=== PATIENT | female | born 1945 | race Caucasian/White ===

== ENCOUNTER 2017-11-15 12:50 | Inpatient (IN) | payer MEDICARE ==
--- NOTE | 2017-11-15 14:09 | RAD ---
INDICATION: Weakness COMPARISON: January 31, 2014 TECHNIQUE: An AP portable view obtained at 1401 hours is submitted. FINDINGS: Bones/Soft Tissues: There are no acute bony findings. Cardiomediastinal: The cardiomediastinal silhouette is normal. Lungs: There are no infiltrates. Pleura: There are no pleural effusions. Other: None IMPRESSION: NO ACTIVE DISEASE.
[2017-11-15 14:40] LABS: ABS Basophils 0.2 10^3/ul (0-0.2); ABS Eosinophils 0 10^3/ul (0-0.6); ABS Lymphocytes 1.4 10^3/ul (1.0-4.8); ABS Monocytes 0.9 10^3/ul (0-0.8); ABS Neutrophils 14.4 10^3/ul (1.5-7.7); ABS Nucleated RBC 0 10^3/ul; Eosinophil % 0.1 % (0-6); Hematocrit 39 % (35-47); Lymphocyte % 8.2 % (25-47); Mean Corpuscular HGB Conc 33 g/dl (31-36); Mean Corpuscular Hemoglobin 27 pg (27-31); Mean Corpuscular Volume 80 fL (80-97); Mean Platelet Volume 7.4 um3 (7.4-10.4); Nucleated Red Blood Cells % 0.1; Platelet Count 325 10^3/ul (150-450); Red Blood Count 4.92 10^6/ul (4.00-5.40); Red Cell Distribution Width 15 % (10.5-15); White Blood Count 16.8 10^3/ul (3.5-10.8)
[2017-11-15 14:43] LABS: Urine Appearance Clear; Urine Blood 3+ (Negative); Urine Color Yellow; Urine Ketones Negative (Negative); Urine Protein 2+(100 mg/dL) (Negative); Urine Red Blood Cell 1+(3-5/hpf) (Absent); Urine Specific Gravity 1.015 (1.010-1.030); Urine Urobilinogen Negative (Negative); Urine White Blood Cell Absent (Absent)
[2017-11-15 14:48] LABS: INR 1.06 (0.77-1.02)
[2017-11-15 15:01] LABS: EGFR Non-African American 69.7 (>60)
[2017-11-15] MEDS ORDERED: Piperacillin/Tazobac ADVAN(*) 3.375 GM in NS 0.9% 100 ML* 100 ML IVPB ONE (15:24)
[2017-11-15] MEDS ORDERED: NS 0.9% 1000 ML* 1,000 ML IV ONE (15:24)
[2017-11-15] MEDS ORDERED: NS 0.9% IV ONE (15:25)
[2017-11-15] MEDS ORDERED: Piperacillin/Tazobac (*) 3.375 GM BAG ONE (15:29)
--- NOTE | 2017-11-15 16:07 | ED ---
Adult Trauma - HPI Summary HPI Summary: This is antoni Pablobrendan documenting for attending Dr. Nazario Hoffmann MD. This patient is a 72 year old F BIBA with a chief complaint of weakness since this morning. Pt was on a futon on the floor and could not stand up from 01:00 to 6:30, when her neighbor found her and called for an ambulance. Pt was lifted by EMS to get here. The patient rates the pain 4/10 in severity. Patient reports abrasions on her elbows and knees, fatigue, increased urinary frequency , discolored/dark urine, constipation, and hematuria. Patient denies CP. Pt was able to walk to the bathroom while at [facility]. Pt mentioned that she had a fall around 11:00AM. Pt became visibly anxious at the thought of being admitted and began talking about her cats. Pt states she has no friends or family in the area. PMHX UTI, cardiac disease, psychiatric disorder. No PMHx Diabetes. - History of Current Complaint Chief Complaint: EDWeakness Stated Complaint: FALL Time Seen by Provider: 11/15/17 12:53 Hx Obtained From: Patient Mechanism of Injury: Fall Loss of Consciousness: no loss of consciousness Onset/Duration: Started Hours Ago - 1:00AM Onset of Pain: Immediate Onset Severity: Severe Current Severity: Moderate Pain Intensity: 4 Pain Scale Used: 0-10 Numeric Location: Other - abrasions on shoulders, knees, shins Aggravating Factor(s): Movement - Allergy/Home Medications Allergies/Adverse Reactions: Allergies Allergy/AdvReac Type Severity Reaction Status Date / Time fluoxetine [From Prozac] Allergy See Comment Verified 11/15/17 13:14 latex Allergy See Comment Verified 11/15/17 13:14 lithium Allergy See Comment Verified 11/15/17 13:14 olanzapine [From Zyprexa] Allergy See Comment Verified 11/15/17 13:14 L[place]ste Allergy Anaphylatic Uncoded 11/15/17 13:14 Shock Home Medications: Home Medications Losartan Potassium 1 tab PO QPM 11/15/17 [History Confirmed 11/15/17] lamoTRIgine TAB(*) [LaMICtal TAB(*)] 225 mg PO BEDTIME 11/15/17 [History Confirmed 11/15/17] risperiDONE TAB* [RisperDAL*] 0.5 mg PO BEDTIME 11/15/17 [History Confirmed ] PMH/Surg Hx/FS Hx/Imm Hx Cardiovascular History: Reports: Hx Hypertension EENT History: Denies: Hx Deafness - Surgical History Surgery Procedure, Year, and Place: D&C Infectious Disease History: No Infectious Disease History: Reports: Hx Shingles Denies: Traveled Outside the [place] in Last 30 Days - Family History Known Family History: Positive: Cardiac Disease - Social History Alcohol Use: Occasionally Substance Use Type: Reports: None Smoking Status (MU): Former Smoker Review of Systems Positive: Fatigue Negative: Chest Pain Positive: Other - constipation Positive: frequency, hematuria, other - dark urine Positive: Decreased ROM Positive: Bruising - knees, elbows, shins Positive: Weakness All Other Systems Reviewed And Are Negative: Yes Physical Exam - Summary Physical Exam Summary: Constitutional: Well-developed, Well-nourished, Alert. Poor personal hygiene. Skin: Warm, Dry. Abrasions on the elbows, knees, and shins. HENT: Normocephalic; Atraumatic Eyes: Conjunctiva normal Neck: Musculoskeletal ROM normal neck. Cardio: Rhythm regular, rate normal, Heart sounds normal; Intact distal pulses; The pedal pulses are 2+ and symmetric. Radial pulses are 2+ and symmetric. Pulmonary/Chest wall: Effort normal. Abd: Suprapubic tenderness. Musculoskeletal: normal Neuro: Alert, Oriented x3 Psych: Mood and affect Normal Triage Information Reviewed: Yes Vital Signs On Initial Exam: Initial Vitals Pulse Resp BP Pulse Ox 87 18 141/73 97 11/15/17 12:52 11/15/17 12:52 11/15/17 12:52 11/15/17 12:52 Vital Signs Reviewed: Yes Diagnostics - Vital Signs Vital Signs Temp Pulse Resp BP Pulse Ox 11/15/17 15:22 82 15 123/72 98 11/15/17 15:00 83 15 96 11/15/17 14:52 82 19 120/74 98 11/15/17 14:00 91 21 98 11/15/17 13:56 97 11/15/17 13:22 85 13 129/69 97 11/15/17 13:14 86 18 96 11/15/17 12:53 97.1 F 94 15 130/78 97 11/15/17 12:52 87 18 141/73 97 - Laboratory Lab Results: Lab Results 11/15/17 11/15/17 11/15/17 Range/Units 14:17 14:17 14:17 WBC 16.8 H (3.5-10.8) 10^3/ul RBC 4.92 (4.00-5.40) 10^6/ul Hgb 13.0 (12.0-16.0) g/dl Hct 39 (35-47) % MCV 80 (80-97) fL MCH 27 (27-31) pg MCHC 33 (31-36) g/dl RDW 15 (10.5-15) % Plt Count 325 (150-450) 10^3/ul MPV 7.4 (7.4-10.4) um3 Neut % (Auto) 85.6 H (38-83) % Lymph % (Auto) 8.2 L (25-47) % [place] % (Auto) 5.1 (0-7) % Eos % (Auto) 0.1 (0-6) % Baso % (Auto) 1.0 (0-2) % Absolute Neuts (auto) 14.4 H (1.5-7.7) 10^3/ul Absolute Lymphs (auto) 1.4 (1.0-4.8) 10^3/ul Absolute Monos (auto) 0.9 H (0-0.8) 10^3/ul Absolute Eos (auto) 0 (0-0.6) 10^3/ul Absolute Basos (auto) 0.2 (0-0.2) 10^3/ul Absolute Nucleated RBC 0 10^3/ul Nucleated RBC % 0.1 INR (Anticoag Therapy) 1.06 H (0.77-1.02) APTT 17.9 L (26.0-36.3) seconds Sodium 141 (135-145) mmol/L Potassium 3.2 L (3.5-5.0) mmol/L Chloride 106 (101-111) mmol/L Carbon Dioxide 23 (22-32) mmol/L Anion Gap 12 H (2-11) mmol/L BUN 10 (6-24) mg/dL Creatinine 0.81 (0.51-0.95) mg/dL Est GFR ( Amer) 84.3 (>60) Est GFR (Non-Af Amer) 69.7 (>60) BUN/Creatinine Ratio 12.3 (8-20) Glucose 131 H (70-100) mg/dL Lactic Acid (0.5-2.0) mmol/L Calcium 8.9 (8.6-10.3) mg/dL Total Bilirubin 0.60 (0.2-1.0) mg/dL AST 279 H (13-39) U/L ALT 70 H (7-52) U/L Alkaline Phosphatase 78 (34-104) U/L Total Creatine Kinase Pending Troponin I 0.09 H* (<0.04) ng/mL Total Protein 7.0 (6.4-8.9) g/dL Albumin 3.9 (3.2-5.2) g/dL Globulin 3.1 (2-4) g/dL Albumin/Globulin Ratio 1.3 (1-3) Urine Color Urine Appearance Urine pH (5-9) Ur Specific [place] (1.010-1.030) Urine Protein (Negative) Urine Ketones (Negative) Urine Blood (Negative) Urine Nitrate (Negative) Urine Bilirubin (Negative) Urine Urobilinogen (Negative) Ur Leukocyte Esterase (Negative) Urine WBC (Auto) (Absent) Urine RBC (Auto) (Absent) Ur Squamous Epith Cells (Absent) Urine Bacteria (Absent) Urine Glucose (Negative) 11/15/17 11/15/17 Range/Units 14:17 14:18 WBC (3.5-10.8) 10^3/ul RBC (4.00-5.40) 10^6/ul Hgb (12.0-16.0) g/dl Hct (35-47) % MCV (80-97) fL MCH (27-31) pg MCHC (31-36) g/dl RDW (10.5-15) % Plt Count (150-450) 10^3/ul MPV (7.4-10.4) um3 Neut % (Auto) (38-83) % Lymph % (Auto) (25-47) % [place] % (Auto) (0-7) % Eos % (Auto) (0-6) % Baso % (Auto) (0-2) % Absolute Neuts (auto) (1.5-7.7) 10^3/ul Absolute Lymphs (auto) (1.0-4.8) 10^3/ul Absolute Monos (auto) (0-0.8) 10^3/ul Absolute Eos (auto) (0-0.6) 10^3/ul Absolute Basos (auto) (0-0.2) 10^3/ul Absolute Nucleated RBC 10^3/ul Nucleated RBC % INR (Anticoag Therapy) (0.77-1.02) APTT (26.0-36.3) seconds Sodium (135-145) mmol/L Potassium (3.5-5.0) mmol/L Chloride (101-111) mmol/L Carbon Dioxide (22-32) mmol/L Anion Gap (2-11) mmol/L BUN (6-24) mg/dL Creatinine (0.51-0.95) mg/dL Est GFR ( Amer) (>60) Est GFR (Non-Af Amer) (>60) BUN/Creatinine Ratio (8-20) Glucose (70-100) mg/dL Lactic Acid 4.1 H* (0.5-2.0) mmol/L Calcium (8.6-10.3) mg/dL Total Bilirubin (0.2-1.0) mg/dL AST (13-39) U/L ALT (7-52) U/L Alkaline Phosphatase (34-104) U/L Total Creatine Kinase Troponin I (<0.04) ng/mL Total Protein (6.4-8.9) g/dL Albumin (3.2-5.2) g/dL Globulin (2-4) g/dL Albumin/Globulin Ratio (1-3) Urine Color Yellow Urine Appearance Clear Urine pH 5.0 (5-9) Ur Specific [place] 1.015 (1.010-1.030) Urine Protein 2+(100 mg/dl) A (Negative) Urine Ketones Negative (Negative) Urine Blood 3+ A (Negative) Urine Nitrate Negative (Negative) Urine Bilirubin Negative (Negative) Urine Urobilinogen Negative (Negative) Ur Leukocyte Esterase Negative (Negative) Urine WBC (Auto) Absent (Absent) Urine RBC (Auto) 1+(3-5/hpf) A (Absent) Ur Squamous Epith Cells Present A (Absent) Urine Bacteria Absent (Absent) Urine Glucose Negative (Negative) Result Diagrams: 11/15/17 14:17 07/29/18 14:17 Lab Statement: Any lab studies that have been ordered have been reviewed, and results considered in the medical decision making process. - Radiology CXR Radiology Interpretation Completed By: Radiologist - NO ACTIVE DISEASE. ER Physician reviewed this report - EKG 16:00 Cardiac Rate: NL - 87 bpm EKG Rhythm: Sinus Rhythm EKG Interpretation: T wave flattening V1-V6, no STEMI Adult Trauma Course/Dx - Course Course Of Treatment: This is guadalupeibmonserrat Ndiaye documenting for attending Dr. Nazario Hoffmann MD. This patient is a 72 year old F BIBA with a chief complaint of weakness since this morning. Pt was on a futon on the floor and could not stand up from 01:00 to 6:30, when her neighbor found her and called for an ambulance. Pt was lifted by EMS to get up. The patient rates the pain 4/10 in severity. Patient reports abrasions on her elbows and knees, fatigue, increased urinary frequency, discolored/dark urine, constipation, and hematuria. Patient denies CP. Pt was able to walk to the bathroom while at [facility]. Pt mentioned that she also had a fall around 11:00AM. Pt became visibly anxious at the thought of being admitted and began talking about her cats. Pt states she has no friends or family in the area. PMHX UTI, cardiac disease, psychiatric disorder. No PMHx Diabetes. An EKG reveals 87 bpm, T wave flattening V1-V6, no STEMI. CXR reveals, per radiologist, NO ACTIVE DISEASE. ED physician has reviewed this radiology report. Test results with no significant abnormalities except for Lactic Acid 4.1H and Trop I .09 H. In the ED course the patient was given IV fluids, Zosyn Bag, and aspirin. Pt will be admitted. Pt is agreeable with this plan. - Diagnoses Provider Diagnoses: Multiple abrasions, Sepsis, Rhabdomyolysis Discharge - Sign-Out/Discharge Documenting (check all that apply): Patient Departure - Admit - Discharge Plan Condition: Fair Disposition: ADMITTED TO [facility] Patient Education Materials: Rhabdomyolysis (ED), Ecchymosis (ED) Referrals: Barby Conde MD [Primary Care Provider] - Additional Instructions: RETURN TO THE EMERGENCY DEPARTMENT FOR CHANGING OR WORSENING SYMPTOMS
[2017-11-15] MEDS ORDERED: Iohexol 300* (CONTRAST) 10 ML SDV IV ONE (16:37)
[2017-11-15] MEDS ORDERED: Aspirin 81 mg CHEW TAB* 81 MG TAB.CHEW PO ONE ×2 (17:47→18:11)
[2017-11-15] MEDS ORDERED: NS 0.9% 1000 ML* 1,000 ML IV SCH ×2 (18:00→19:00)
--- NOTE | 2017-11-15 18:24 | RAD ---
INDICATION: Abdominal pain COMPARISON: None TECHNIQUE: Axial source images were obtained from the hemidiaphragms to the symphysis pubis following administration of oral contrast only. Coronal and sagittal reconstructed images were acquired. Lung bases: The lung bases are clear. Liver: The liver is enlarged with findings of hepatic steatosis. There are no masses identified on noncontrast evaluation. There is no ductal dilatation. Gallbladder: There is a small calcified gallstones. There is no evidence of wall thickening or pericholecystic fluid. Spleen: Noncontrast imaging shows no evidence of splenic mass. Pancreas: There is no focal pancreatic mass or ductal dilatation. Adrenal glands: There is no evidence of adrenal mass. Kidneys: There is bilateral nephrolithiasis with multiple calcifications 3 to 4 mm range the dominant lower pole left renal calculus measuring 0.8 cm. There is a 4 mm calculus proximal left ureter. This does not appear obstructive. There are no other calcifications of urinary significance. There is no renal mass on noncontrast evaluation. The bladder appears normal. Adenopathy: There is no evidence of adenopathy by size criteria. Fluid collections: There are no free or localized fluid collections. Vessels:There are no significant atherosclerotic changes involving the aorta. There is no focal aneurysm. The iliac vessels are normal in caliber. The IVC appears normal. GI tract: The upper GI tract is unremarkable. There is mural thickening and mild perienteric stranding the sigmoid colon multiple diverticula. CT findings are compatible with mild acute diverticulitis. The appendix is There are no findings of obstruction. Pelvic organs: The uterus and adnexa appear normal Bladder: There are no bladder masses. Abdominal and pelvic soft tissues: The extraperitoneal abdominal and pelvic soft tissues appear normal.. Osseous structures: There are no acute osseous findings. Other: None IMPRESSION: 1. Hepatomegaly with hepatic steatosis. 2. Cholelithiasis. 3. Bilateral nonobstructive nephrolithiasis and proximal left ureterolithiasis. 4. Mild sigmoid colon diverticulitis.
[2017-11-15] MEDS: Metoprolol Tartrate TAB* 25 MG PO SCH (20:44)
[2017-11-15] MEDS: lamoTRIgine TAB(*) 25 MG PO SCH (20:45)
[2017-11-15] MEDS: lamoTRIgine TAB(*) 100 MG PO SCH (20:45)
--- NOTE | 2017-11-15 21:24 | HP ---
HISTORY AND PHYSICAL: DATE OF ADMISSION: 11/15/17 ADMITTING PROVIDER: Narendra Parsons MD PRIMARY CARE PROVIDER: Dr. Conde. PRIMARY OUTPATIENT PRODUCTION TEAM MANAGER: Dr. Barrientos. PRIMARY PSYCHIATRIST: Kenia Bailey NP CHIEF COMPLAINT: Two falls, inability to stand from seated or fallen position. 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 [facility] was called, who assisted pt up. She then slipped off of a narrow cot later that same day around 11 a.m., neighbor found her and recommended that she seek evaluation. Initial evaluation in the emergency room showed a leukocytosis of 16.8, a lactic acidosis of 4.1, a troponin of 0.09, and a urinalysis with 3+ blood, 1+ RBCs and 2+ protein. She was started on sepsis protocol fluid resuscitation with initiation of 30 cc/kg fluid bolus (on 2nd L currently) and given Zosyn. CT abdomen and pelvis with contrast ordered/pending. She was referred to the hospitalist service for admission for above complaints. In the interim, her CK has just returned elevated at 19,816. She complains that she has had increase in weight recently and is occasionally off balance while walking. Denies any room spinning or lightheadedness, just "unsteady." She denies any chest pain. She occasionally gets short of breath. She describes occasional heartburn symptoms after eating. She has had increased edema for the last several months and decided to take herself off her daily torsemide 20 mg daily for approximately "8 months" because she does not like the frequency of urination it causes. She has had evidence of orthopnea and paroxysmal nocturnal dyspnea. She occasional wheezes, not currently. She complains of some mild pain in her bilateral knees and elbows with abrasions from the falls. She denies any dysuria, but has noted "brown urine" for the last month. She denies ever having echocardiogram or pulmonary function tests. She has 30 pack- years former smoking, quit in year 1999. Her sister and medical surrogate, Kee Cordova, called with report that her landlord has found the apartment not to be in a suitable living condition and she is considering calling APS services to have the patient removed from her home. She largely never leaves the house in the 6 years she has lived here and has no social contacts or other friends locally. She denies any nausea or vomiting. She does say she has been constipated recently. She had a small bowel movement both yesterday and the day prior, has some pain with palpation of the left groin area she attests to. Denies any fevers, chills, night sweats. PAST MEDICAL HISTORY: Hypertension, bipolar disease, morbid obesity. MEDICATIONS: Include: 1. Losartan 100 mg p.o. q.p.m. 2. Lamotrigine 225 mg p.o. q.p.m. 3. Diltiazem 240 mg p.o. q.p.m. 4. Risperidone 0.5 mg p.o. q.p.m. and 0.5 mg up to 1 additional time per day p.r.n. 5. Aspirin 650 mg p.o. daily p.r.n. ALLERGIES: Include PROZAC, LATEX, LITHIUM, SEROQUEL, and LOBSTERS ( anaphylactic shock for the lobsters). FAMILY HISTORY: Mother age 90 of leukemia. Father of unknown causes , age 86, history of diabetes, hypertension, Alzheimer's disease. Sister of cervical cancer at age 56. SOCIAL HISTORY: The patient is a former nurse. She lives alone. Medical surrogate is Kee Cordova, her sister. She is a former smoker, quit year 1999, 30 years, approximately 1 pack per year. Never a heavy drinker, 3 times a year approximately. No other drug use. She desires to be a full code given her Buddhist rastafari beliefs. She has lived in [place] 6 years and hardly ever leaves the house. She knows no one in the community. REVIEW OF SYSTEMS: A complete 14-point review of systems negative except as per HPI. PHYSICAL EXAMINATION GENERAL APPEARANCE: No acute distress. VITAL SIGNS: Temperature 97.1, heart rate 86, respiratory rate 22, satting 98% on room air, blood pressure 153/95 currently. HEENT: Normocephalic, atraumatic. Pupils are equal, round, and reactive to light. Extraocular motions intact. No scleral icterus. Moist mucous membranes. No oropharyngeal lesions. NECK: Supple. No cervical lymphadenopathy. PULMONARY: Clear to auscultation bilaterally with no wheezing, rales, or rhonchi. CARDIOVASCULAR: Regular rate and rhythm. No murmurs, rubs, or gallops. ABDOMEN: Soft, nontender, slightly distended secondary to super morbid obesity. No rebound, no guarding. No Wilson's sign. EXTREMITIES: Warm, well perfused. 1+ pitting edema, bilateral lower extremities. NEUROLOGIC: Cranial nerves II through XII intact. Orange Picker strength 5/5. The patient was seen ambulating to the restroom (after she required 2 person assistance getting up from a supine position. DIAGNOSTIC STUDIES/LAB DATA: White count 16.8, hemoglobin 13.8, hematocrit 39 , platelets 325, neutrophil percentage 85.6. INR 1.06, APTT 17.9. Sodium 141, potassium 3.2, chloride 106, carbon dioxide 23, BUN 10, creatinine 0.81, glucose 131, lactic acid 4.1, calcium 8.9. Total bili 0.60, AST 279, ALT 70, alk phos 78. Troponin 0.09. Albumin 3.9. Urinalysis: Specific gravity 1.015, protein 2+, blood 3+, RBCs 1+, bacteria absent, glucose negative. CK 19,816. Imaging: Chest x-ray demonstrated no acute cardiopulmonary process. EKG demonstrated normal sinus rhythm, heart rate 87, Q waves inferiorly in III, flat T-waves in V1 through V3 and biphasic in V4 through V6 and lead I, QTc is 518, normal axis. No ST depressions or elevations. ASSESSMENT AND PLAN: Cha Fuentes is a 72-year-old female with history of bipolar disease, hypertension, morbid obesity, presenting with 2 falls, increased weakness and was down on the ground for approximately 6 hours, presenting with creatine kinase of 19,816, lactic acidosis of 4.1, leukocytosis of 16.8, some transaminitis with AST 279, ALT 70, troponin elevation to 0.09. She is finishing off her second liter of a fluid bolus ordered in the ED. I am adding on a BNP given her history of recent edema, worsening weight gain in setting of being off her torsemide for approximately 8 months now. She has never had echocardiogram. Given her elevated troponin and possibility of congestive heart failure, I am going to add that on. Her main issue seems to be rhabdomyolysis and weakness. The weakness may be secondary to congestive heart failure and general deconditioning given her morbid obesity. We will trend troponins every 4 hours until peaked, put her on telemetry. She denies any chest pain or shortness of breath currently, but does have evidence of some T- wave flattening. I am going to hold off on any therapeutic anticoagulation for now. For her IV fluids, I am going to run normal saline at 250 cc an hour for the next 10 hours and repeat a CK in the morning, try to flush out her kidneys. We will repeat the lactic acid. She has evidence of poor perfusion to the tissues, but I do not have a clear source for an active infection. She is status post Zosyn in the ED. I am adding on a procalcitonin. We are going to hold her antihypertensives for now including her losartan 100 mg daily and diltiazem 240 mg daily. I am going to start metoprolol 25 mg q.6 hours and give her 324 mg of aspirin given the elevated troponin. For her bipolar disease , continue her risperidone 0.5 mg p.o. q.p.m. and lamotrigine 225 mg p.o. q.p.m. We will follow up on the lamotrigine level drawn by the emergency room. Of note, the emergency room has ordered her for a CT abdomen and pelvis with IV and p.o. contrast. I have instructed the nursing staff to not give her any IV contrast given her active rhabdomyolysis, concern for worsening acute kidney injury and we will follow up on the results of the CT abdomen p.o. contrast study, though I suspect given the lack of her any active abdominal pain, that will be of somewhat limited utility. I have looked at Dr. Conde's last office note from 08/10/17, and there is evidence of LDL of 98, HDL of 43 at that time on . I am adding on an A1c. She is currently mildly hyperglycemic. We will start her on heparin DVT prophylaxis given her elevated DVT risk assessment ( immobility, swelling, age). She is a full code. Medical surrogate is sister, Kee Cordova. Social Work is also consulted for the concern that she may be evicted from her house by her landlord. She is being admitted to inpatient status. Addendum: Procalcitonin was elevated at 1.[address] abd showed evidence of mild sigmoid colon diverticulitis, 4mm nonobstructing proximal left ureter stone, cholelithiasis (no wall thickening of pericholecystic fluid). Zosyn was not continued but Ceftriaxone 1g daily was started for the mild sigmoid diverticulitis (avoiding cipro/flagyl given QTc prolongation). [id number]/[facility] #: [id number] [facility]
[2017-11-15] MEDS: Heparin VIAL(*) 5000 UNITS/ML VIAL (FIVE THOUSAND) SUBCUT SCH (22:06)
[2017-11-15] MEDS: Acetaminophen TAB* 325 MG PO PRN (23:44)
[2017-11-15] MEDS: cefTRIAXone(*) 1 GM in NS 0.9% 50 ML* 50 ML IVPB SCH (23:44)
[2017-11-16] MEDS: Metoprolol Tartrate TAB* 25 MG PO SCH ×4 (02:05→19:52)
[2017-11-16] MEDS: Acetaminophen TAB* 325 MG PO PRN ×3 (04:33→14:22)
[2017-11-16] MEDS: Heparin VIAL(*) 5000 UNITS/ML VIAL (FIVE THOUSAND) SUBCUT SCH ×3 (05:25→21:52)
[2017-11-16 07:00] LABS: ABS Basophils 0 10^3/ul (0-0.2); ABS Eosinophils 0.2 10^3/ul (0-0.6); ABS Lymphocytes 1.4 10^3/ul (1.0-4.8); ABS Monocytes 0.8 10^3/ul (0-0.8); ABS Neutrophils 12.1 10^3/ul (1.5-7.7); ABS Nucleated RBC 0 10^3/ul; Eosinophil % 1.3 % (0-6); Hematocrit 37 % (35-47); Hemoglobin 12.1 g/dl (12.0-16.0); Lymphocyte % 9.9 % (25-47); Mean Corpuscular HGB Conc 33 g/dl (31-36); Mean Corpuscular Hemoglobin 27 pg (27-31); Mean Corpuscular Volume 81 fL (80-97); Mean Platelet Volume 7.3 um3 (7.4-10.4); Nucleated Red Blood Cells % 0; Platelet Count 274 10^3/ul (150-450); Red Blood Count 4.54 10^6/ul (4.00-5.40); Red Cell Distribution Width 15 % (10.5-15); White Blood Count 14.6 10^3/ul (3.5-10.8)
[2017-11-16 07:13] LABS: EGFR Non-African American 91.5 (>60)
[2017-11-16] MEDS: Aspirin 81 mg CHEW TAB* 81 MG TAB.CHEW PO SCH (07:51)
[2017-11-16] MEDS ORDERED: NS 0.9% 1000 ML* 1,000 ML IV SCH (08:15)
[2017-11-16] MEDS ORDERED: Potassium Chloride LIQUID* 20 MEQ PACKET PO ONE (08:30)
[2017-11-16] MEDS ORDERED: Potassium Chlor TAB* 20 MEQ TAB.ER PO ONE (08:47)
[2017-11-16] MEDS ORDERED: Perflutren Lipid Microsphere* 3 ML VIAL ONE (09:56)
[2017-11-16] MEDS: Magnesium Sulfate 1 GM IV* 1 GM/100 ML BAG IV ONE ×2 (10:31→11:15)
--- NOTE | 2017-11-16 12:01 | ECHO ---
Patient: VALARIE LERMA [facility] Rec#: [id number] : 1945 Date: 11/16/2017 Age: 72y Height: 165.1 cm / 65.0 in Weight: 117.9 kg / 259.9 lbs Sex: F BSA: 2.2 Room#: [facility] Admit Date#: 11/15/2017 Type: Inpatient Referring: Narednra Parsons Reading: Dayne Anderson MD Physician General Internal Medicine: Maritza Hernandez RN RDCS CC: Barby Conde MD Transthoracic Echocardiogram Indication: SOB, edema, abnormal EKG BP: 142/60 HR: 78 Rhythm: NSR Findings History: HTN, former smoker, morbid obesity, bipolar disorder Technical Comments: The study is technically limited due to patient body habitus. The study is technically limited due to the patient's smoking history. Left Ventricle: The left ventricular chamber size is normal. Mild concentric left ventricular hypertrophy is observed. Global left ventricular wall motion and contractility are within normal limits. There is normal left ventricular systolic function. The estimated ejection fraction is 60-65%. The assessment of diastolic function is non-diagnostic. Left Atrium: The left atrium is mildly dilated. Right Ventricle: The right ventricle wall thickness is moderately increased. The right ventricular cavity size is normal. The right ventricular global systolic function is low normal. Right Atrium: The right atrium is mildly dilated. Aortic Valve: The aortic valve structure is not well visualized. The aortic valve leaflets are mildly thickened. There is no evidence of aortic regurgitation. There is no evidence of aortic stenosis. Mitral Valve: The mitral valve leaflets are mildly thickened. There is a trace of mitral regurgitation. There is no evidence of mitral stenosis. Tricuspid Valve: The tricuspid valve structure is not well visualized. The tricuspid valve leaflets are normal. There is trace to mild tricuspid regurgitation. No pulmonary hypertension is noted. Pulmonic Valve: The pulmonic valve structure is not well visualized. There is no evidence of pulmonic regurgitation. There is no pulmonic stenosis. Pericardium: There is no significant pericardial effusion. A pericardial fat pad is visualized. Aorta: There is no dilatation of the ascending aorta. The aortic arch is not well visualized. There is no dilation of the aortic root. Pulmonary Artery: The main pulmonary artery is not well visualized. Venous: The venous system is not well visualized. The inferior vena cava is not visualized. Contrast: Definity was used to optimize study. A total of 4 ml of diluted Definity was given IV for image enhancement. Summary: There was not any prior study for comparison. Conclusions Global left ventricular wall motion and contractility are within normal limits. There is normal left ventricular systolic function. The estimated ejection fraction is 60-65%. The right ventricular global systolic function is low normal. There is no evidence of aortic stenosis. There is a trace of mitral regurgitation. There is trace to mild tricuspid regurgitation. There is no significant pericardial effusion. Measurements Name Value Normal Range RVDdMajor (2D) 3.1 cm (2.2 - 4.4) RVAW (2D) 1 cm (0.2 - 0.5) RAd ISD 4CH 5.1 cm (3.4 - 4.9) RA (A4C)W 3.7 cm (2.9 - 4.6) IVSd (2D) 1.2 cm (0.6 - 1) LVPWd (2D) 1.1 cm (0.6 - 1) LVIDd (2D) 4.2 cm (3.6 - 5.4) LVIDs (2D) 3 cm - LV FS (2D) 29 % (25 - 45) Aortic Annulus 1.9 cm (1.4 - 2.6) Ao root diameter (2D) 3.3 cm (2.1 - 3.5) Ascending Ao 2.9 cm (2.1 - 3.4) Aortic arch 2.6 cm (1.8 - 3.4) LA dimension (AP) 2D 3.4 cm (2.3 - 3.8) LAd ISD 4CH 5.5 cm (2.9 - 5.3) LA ISD 4CH W 4.3 cm (2.5 - 4.5) Name Value Normal Range LA ESV SP 4CH (A/L) 50 ml - LA ESV SP 2CH (A/L) 40 ml - LA ESV BP (A/L) 46 ml - LA ESV BP (A/L) index 21 ml/m2 - LA ESV SP 4CH (MOD) 46 ml - LA ESV SP 2CH (MOD) 38 ml - Name Value Normal Range MV E-wave Vmax 1.1 m/sec - MV deceleration time 215 msec - MV A-wave Vmax 0.82 m/sec - MV E:A ratio 1.3 ratio - LV septal e' Vmax 0.08 m/sec - LV lateral e' Vmax 0.08 m/sec - LV E:e' septal ratio 13.8 ratio - LV E:e' lateral ratio 13.8 ratio - Name Value Normal Range AV Vmax 1.7 m/sec - AV VTI 33.8 cm - AV peak gradient 12 mmHg - AV mean gradient 6 mmHg - LVOT Vmax 1.4 m/sec - LVOT VTI 27 cm - LVOT peak gradient 7 mmHg - LVOT mean gradient 4 mmHg - MARTIN Vmax 0.51 m/sec - Name Value Normal Range TR Vmax 2.5 m/sec - TR peak gradient 25 mmHg - RAP 8 mmHg - RVSP 33 mmHg - Name Value Normal Range PV Vmax 0.93 m/sec -
--- NOTE | 2017-11-16 18:39 | PN ---
Subjective Date of Service: 11/16/17 Interval History: Patient seen and examined. No complaints of SOB or chest pain. States sore pain through her shoulders and the back of her right upper arm, otherwise, no fever or chills, tolerating PO, ambulatory with assist. Objective Active Medications: Acetaminophen (Tylenol Tab*) 650 mg PO Q4H PRN PRN Reason: PAIN Last Admin: 11/16/17 14:22 Dose: 650 mg Aspirin (Aspirin 81 Mg Chew Tab*) 81 mg PO DAILY [facility] Last Admin: 11/16/17 07:51 Dose: 81 mg Heparin Sodium (Porcine) (Heparin Vial(*)) 5,000 units SUBCUT Q8HR [facility] Last Admin: 11/16/17 13:25 Dose: 5,000 units Ceftriaxone Sodium 1 gm/ (Sodium Chloride) 50 mls @ 200 mls/hr IVPB Q24H [facility] Last Admin: 11/15/17 23:44 Dose: 200 mls/hr Lamotrigine (Lamictal Tab(*)) 200 mg PO BEDTIME [facility] Last Admin: 11/15/17 20:45 Dose: 200 mg Lamotrigine (Lamictal Tab(*)) 25 mg PO BEDTIME [facility] Last Admin: 11/15/17 20:45 Dose: 25 mg Metoprolol Tartrate (Lopressor Tab*) 25 mg PO Q6H [facility] Last Admin: 11/16/17 12:19 Dose: 25 mg Risperidone (Risperdal) 0.5 mg PO BEDTIME [facility] Last Admin: 11/15/17 20:45 Dose: 0.5 mg Vital Signs - 8 hr 11/16/17 11:49 Temperature 97.8 F Pulse Rate 77 Respiratory 20 Rate Blood Pressure 111/59 (mmHg) O2 Sat by Pulse 97 Oximetry Oxygen Devices in Use Now: None Appearance: Alert, NAD Eyes: No Scleral Icterus, PERRLA Ears/Nose/Mouth/Throat: Clear Oropharnyx Neck: NL Appearance and Movements; NL JVP, Trachea Midline Respiratory: Symmetrical Chest Expansion and Respiratory Effort, Clear to Auscultation Cardiovascular: NL Sounds; No Murmurs; No JVD, RRR Extremities: No Clubbing, Cyanosis Skin: No Rash or Ulcers Neurological: Alert and Oriented x 3, NL Sensation Nutrition: Taking PO's Result Diagrams: 11/16/17 06:40 11/16/17 06:40 Additional Lab and Data: Lab Results 11/15/17 11/15/17 11/15/17 Range/Units 14:17 14:17 14:17 WBC 16.8 H (3.5-10.8) 10^3/ul RBC 4.92 (4.00-5.40) 10^6/ul Hgb 13.0 (12.0-16.0) g/dl Hct 39 (35-47) % MCV 80 (80-97) fL MCH 27 (27-31) pg MCHC 33 (31-36) g/dl RDW 15 (10.5-15) % Plt Count 325 (150-450) 10^3/ul MPV 7.4 (7.4-10.4) um3 Neut % (Auto) 85.6 H (38-83) % Lymph % (Auto) 8.2 L (25-47) % [place] % (Auto) 5.1 (0-7) % Eos % (Auto) 0.1 (0-6) % Baso % (Auto) 1.0 (0-2) % Absolute Neuts (auto) 14.4 H (1.5-7.7) 10^3/ul Absolute Lymphs (auto) 1.4 (1.0-4.8) 10^3/ul Absolute Monos (auto) 0.9 H (0-0.8) 10^3/ul Absolute Eos (auto) 0 (0-0.6) 10^3/ul Absolute Basos (auto) 0.2 (0-0.2) 10^3/ul Absolute Nucleated RBC 0 10^3/ul Nucleated RBC % 0.1 INR (Anticoag Therapy) 1.06 H (0.77-1.02) APTT 17.9 L (26.0-36.3) seconds Sodium 141 (135-145) mmol/L Potassium 3.2 L (3.5-5.0) mmol/L Chloride 106 (101-111) mmol/L Carbon Dioxide 23 (22-32) mmol/L Anion Gap 12 H (2-11) mmol/L BUN 10 (6-24) mg/dL Creatinine 0.81 (0.51-0.95) mg/dL Est GFR ( Amer) 84.3 (>60) Est GFR (Non-Af Amer) 69.7 (>60) BUN/Creatinine Ratio 12.3 (8-20) Glucose 131 H (70-100) mg/dL Lactic Acid (0.5-2.0) mmol/L Calcium 8.9 (8.6-10.3) mg/dL Total Bilirubin 0.60 (0.2-1.0) mg/dL AST 279 H (13-39) U/L ALT 70 H (7-52) U/L Alkaline Phosphatase 78 (34-104) U/L Total Creatine Kinase Pending Troponin I 0.09 H* (<0.04) ng/mL Total Protein 7.0 (6.4-8.9) g/dL Albumin 3.9 (3.2-5.2) g/dL Globulin 3.1 (2-4) g/dL Albumin/Globulin Ratio 1.3 (1-3) Urine Color Urine Appearance Urine pH (5-9) Ur Specific [place] (1.010-1.030) Urine Protein (Negative) Urine Ketones (Negative) Urine Blood (Negative) Urine Nitrate (Negative) Urine Bilirubin (Negative) Urine Urobilinogen (Negative) Ur Leukocyte Esterase (Negative) Urine WBC (Auto) (Absent) Urine RBC (Auto) (Absent) Ur Squamous Epith Cells (Absent) Urine Bacteria (Absent) Urine Glucose (Negative) 11/15/17 11/15/17 Range/Units 14:17 14:18 WBC (3.5-10.8) 10^3/ul RBC (4.00-5.40) 10^6/ul Hgb (12.0-16.0) g/dl Hct (35-47) % MCV (80-97) fL MCH (27-31) pg MCHC (31-36) g/dl RDW (10.5-15) % Plt Count (150-450) 10^3/ul MPV (7.4-10.4) um3 Neut % (Auto) (38-83) % Lymph % (Auto) (25-47) % [place] % (Auto) (0-7) % Eos % (Auto) (0-6) % Baso % (Auto) (0-2) % Absolute Neuts (auto) (1.5-7.7) 10^3/ul Absolute Lymphs (auto) (1.0-4.8) 10^3/ul Absolute Monos (auto) (0-0.8) 10^3/ul Absolute Eos (auto) (0-0.6) 10^3/ul Absolute Basos (auto) (0-0.2) 10^3/ul Absolute Nucleated RBC 10^3/ul Nucleated RBC % INR (Anticoag Therapy) (0.77-1.02) APTT (26.0-36.3) seconds Sodium (135-145) mmol/L Potassium (3.5-5.0) mmol/L Chloride (101-111) mmol/L Carbon Dioxide (22-32) mmol/L Anion Gap (2-11) mmol/L BUN (6-24) mg/dL Creatinine (0.51-0.95) mg/dL Est GFR ( Amer) (>60) Est GFR (Non-Af Amer) (>60) BUN/Creatinine Ratio (8-20) Glucose (70-100) mg/dL Lactic Acid 4.1 H* (0.5-2.0) mmol/L Calcium (8.6-10.3) mg/dL Total Bilirubin (0.2-1.0) mg/dL AST (13-39) U/L ALT (7-52) U/L Alkaline Phosphatase (34-104) U/L Total Creatine Kinase Troponin I (<0.04) ng/mL Total Protein (6.4-8.9) g/dL Albumin (3.2-5.2) g/dL Globulin (2-4) g/dL Albumin/Globulin Ratio (1-3) Urine Color Yellow Urine Appearance Clear Urine pH 5.0 (5-9) Ur Specific [place] 1.015 (1.010-1.030) Urine Protein 2+(100 mg/dl) A (Negative) Urine Ketones Negative (Negative) Urine Blood 3+ A (Negative) Urine Nitrate Negative (Negative) Urine Bilirubin Negative (Negative) Urine Urobilinogen Negative (Negative) Ur Leukocyte Esterase Negative (Negative) Urine WBC (Auto) Absent (Absent) Urine RBC (Auto) 1+(3-5/hpf) A (Absent) Ur Squamous Epith Cells Present A (Absent) Urine Bacteria Absent (Absent) Urine Glucose Negative (Negative) Microbiology and Other Data: Microbiology 11/15/17 14:17 Aerobic Blood Culture - Preliminary Blood Venous No Growth Day 1 Anaerobic Blood Culture - Preliminary No Growth Day 1 11/15/17 14:18 Aerobic Blood Culture - Preliminary Blood Venous No Growth Day 1 Anaerobic Blood Culture - Preliminary No Growth Day 1 Assess/Plan/Problems-Billing Assessment: This patient is a 72 year old admitted for weakness and rhabdo, she was on the floor and could not stand up from 01:00 to 6:30pm on the day of admission, when her neighbor found her and called for an ambulance. She has a PMHx of UTI, cardiac disease, psychiatric disorder. - Patient Problems (1) Rhabdomyolysis Code(s): M62.82 - RHABDOMYOLYSIS SNOMED Code(s): 696824929 Comment: - Continue fluids, monitor CK and renal function - Replete lytes (2) Fall Comment: - Unclear if this was a mechanical fall vs inability to ambulate due to weakness - PT/OT consults (3) CAD (coronary artery disease) Code(s): I25.10 - ATHSCL HEART DISEASE OF [place] CORONARY ARTERY W/O ANG PCTRS SNOMED Code(s): 82852679 Comment: - Continue ASA (4) Psychiatric disorder Code(s): F99 - MENTAL DISORDER, NOT OTHERWISE SPECIFIED SNOMED Code(s): 85431677 Comment: - Continue risperidone and lamictal (5) UTI (urinary tract infection) Comment: - Continue ceftriaxone, follow cultures and WBC count - Afebrile (6) DVT prophylaxis Code(s): ZXB6012 - SNOMED Code(s): 218499701 Comment: - HSQ (7) Full code status Code(s): Z78.9 - OTHER SPECIFIED HEALTH STATUS SNOMED Code(s): 345786126 Status and Disposition: Remain inpatient. PT/OT evals, possible STR. Dispo pending.
[2017-11-16] MEDS: lamoTRIgine TAB(*) 100 MG PO SCH (21:52)
[2017-11-16] MEDS: lamoTRIgine TAB(*) 25 MG PO SCH (21:52)
[2017-11-17] MEDS: cefTRIAXone(*) 1 GM in NS 0.9% 50 ML* 50 ML IVPB SCH (00:01)
[2017-11-17] MEDS: Acetaminophen TAB* 325 MG PO PRN (00:02)
[2017-11-17] MEDS: Metoprolol Tartrate TAB* 25 MG PO SCH ×4 (00:03→21:11)
[2017-11-17] MEDS: Heparin VIAL(*) 5000 UNITS/ML VIAL (FIVE THOUSAND) SUBCUT SCH ×3 (05:09→21:11)
[2017-11-17 06:09] LABS: ABS Basophils 0.1 10^3/ul (0-0.2); ABS Eosinophils 0.3 10^3/ul (0-0.6); ABS Lymphocytes 1.8 10^3/ul (1.0-4.8); ABS Monocytes 0.6 10^3/ul (0-0.8); ABS Neutrophils 6.9 10^3/ul (1.5-7.7); ABS Nucleated RBC 0 10^3/ul; Eosinophil % 3.3 % (0-6); Hematocrit 36 % (35-47); Hemoglobin 12.1 g/dl (12.0-16.0); Lymphocyte % 18.4 % (25-47); Mean Corpuscular HGB Conc 33 g/dl (31-36); Mean Corpuscular Hemoglobin 27 pg (27-31); Mean Corpuscular Volume 81 fL (80-97); Mean Platelet Volume 7.4 um3 (7.4-10.4); Nucleated Red Blood Cells % 0; Platelet Count 287 10^3/ul (150-450); Red Cell Distribution Width 15 % (10.5-15); White Blood Count 9.7 10^3/ul (3.5-10.8)
[2017-11-17] MEDS: Aspirin 81 mg CHEW TAB* 81 MG TAB.CHEW PO SCH (08:07)
--- NOTE | 2017-11-17 16:45 | PN ---
Subjective Date of Service: 11/17/17 Interval History: Patient seen and examined. No acute overnight events. Feeling well, no SOB, no chest pain, states she felt nauseous briefly earlier today and it passed on it' s own. No fever or chills no urinary complaints. Objective Active Medications: Acetaminophen (Tylenol Tab*) 650 mg PO Q4H PRN PRN Reason: PAIN Last Admin: 11/17/17 00:02 Dose: 650 mg Aspirin (Aspirin 81 Mg Chew Tab*) 81 mg PO DAILY [facility] Last Admin: 11/17/17 08:07 Dose: 81 mg Heparin Sodium (Porcine) (Heparin Vial(*)) 5,000 units SUBCUT Q8HR [facility] Last Admin: 11/17/17 13:45 Dose: 5,000 units Ceftriaxone Sodium 1 gm/ (Sodium Chloride) 50 mls @ 200 mls/hr IVPB Q24H [facility] Last Admin: 11/17/17 00:01 Dose: 200 mls/hr Lamotrigine (Lamictal Tab(*)) 200 mg PO BEDTIME [facility] Last Admin: 11/16/17 21:52 Dose: 200 mg Lamotrigine (Lamictal Tab(*)) 25 mg PO BEDTIME [facility] Last Admin: 11/16/17 21:52 Dose: 25 mg Metoprolol Tartrate (Lopressor Tab*) 25 mg PO Q6H [facility] Last Admin: 11/17/17 13:44 Dose: 25 mg Risperidone (Risperdal) 0.5 mg PO BEDTIME [facility] Last Admin: 11/16/17 21:52 Dose: 0.5 mg Vital Signs - 8 hr 11/17/17 11/17/17 11/17/17 09:31 11:25 13:36 Temperature 97.9 F 99.7 F Pulse Rate 79 88 Respiratory 16 20 Rate Blood Pressure 146/72 146/106 (mmHg) O2 Sat by Pulse 100 99 Oximetry 11/17/17 15:31 Temperature 98.4 F Pulse Rate 78 Respiratory 12 Rate Blood Pressure 141/76 (mmHg) O2 Sat by Pulse 98 Oximetry Oxygen Devices in Use Now: None Appearance: alert, NAD, well appearing Eyes: No Scleral Icterus, PERRLA Ears/Nose/Mouth/Throat: Clear Oropharnyx, Mucous Membranes Moist Neck: NL Appearance and Movements; NL JVP, Trachea Midline Respiratory: Symmetrical Chest Expansion and Respiratory Effort, Clear to Auscultation Cardiovascular: NL Sounds; No Murmurs; No JVD, RRR Abdominal: NL Sounds; No Tenderness; No Distention Extremities: No Edema Skin: - - scab right elbow, healing Neurological: Alert and Oriented x 3, NL Sensation Nutrition: Taking PO's Result Diagrams: 11/17/17 05:56 11/16/17 06:40 Additional Lab and Data: Lab Results 11/15/17 11/15/17 11/15/17 Range/Units 14:17 14:17 14:17 WBC 16.8 H (3.5-10.8) 10^3/ul RBC 4.92 (4.00-5.40) 10^6/ul Hgb 13.0 (12.0-16.0) g/dl Hct 39 (35-47) % MCV 80 (80-97) fL MCH 27 (27-31) pg MCHC 33 (31-36) g/dl RDW 15 (10.5-15) % Plt Count 325 (150-450) 10^3/ul MPV 7.4 (7.4-10.4) um3 Neut % (Auto) 85.6 H (38-83) % Lymph % (Auto) 8.2 L (25-47) % [place] % (Auto) 5.1 (0-7) % Eos % (Auto) 0.1 (0-6) % Baso % (Auto) 1.0 (0-2) % Absolute Neuts (auto) 14.4 H (1.5-7.7) 10^3/ul Absolute Lymphs (auto) 1.4 (1.0-4.8) 10^3/ul Absolute Monos (auto) 0.9 H (0-0.8) 10^3/ul Absolute Eos (auto) 0 (0-0.6) 10^3/ul Absolute Basos (auto) 0.2 (0-0.2) 10^3/ul Absolute Nucleated RBC 0 10^3/ul Nucleated RBC % 0.1 INR (Anticoag Therapy) 1.06 H (0.77-1.02) APTT 17.9 L (26.0-36.3) seconds Sodium 141 (135-145) mmol/L Potassium 3.2 L (3.5-5.0) mmol/L Chloride 106 (101-111) mmol/L Carbon Dioxide 23 (22-32) mmol/L Anion Gap 12 H (2-11) mmol/L BUN 10 (6-24) mg/dL Creatinine 0.81 (0.51-0.95) mg/dL Est GFR ( Amer) 84.3 (>60) Est GFR (Non-Af Amer) 69.7 (>60) BUN/Creatinine Ratio 12.3 (8-20) Glucose 131 H (70-100) mg/dL Lactic Acid (0.5-2.0) mmol/L Calcium 8.9 (8.6-10.3) mg/dL Total Bilirubin 0.60 (0.2-1.0) mg/dL AST 279 H (13-39) U/L ALT 70 H (7-52) U/L Alkaline Phosphatase 78 (34-104) U/L Total Creatine Kinase Pending Troponin I 0.09 H* (<0.04) ng/mL Total Protein 7.0 (6.4-8.9) g/dL Albumin 3.9 (3.2-5.2) g/dL Globulin 3.1 (2-4) g/dL Albumin/Globulin Ratio 1.3 (1-3) Urine Color Urine Appearance Urine pH (5-9) Ur Specific [place] (1.010-1.030) Urine Protein (Negative) Urine Ketones (Negative) Urine Blood (Negative) Urine Nitrate (Negative) Urine Bilirubin (Negative) Urine Urobilinogen (Negative) Ur Leukocyte Esterase (Negative) Urine WBC (Auto) (Absent) Urine RBC (Auto) (Absent) Ur Squamous Epith Cells (Absent) Urine Bacteria (Absent) Urine Glucose (Negative) 11/15/17 11/15/17 Range/Units 14:17 14:18 WBC (3.5-10.8) 10^3/ul RBC (4.00-5.40) 10^6/ul Hgb (12.0-16.0) g/dl Hct (35-47) % MCV (80-97) fL MCH (27-31) pg MCHC (31-36) g/dl RDW (10.5-15) % Plt Count (150-450) 10^3/ul MPV (7.4-10.4) um3 Neut % (Auto) (38-83) % Lymph % (Auto) (25-47) % [place] % (Auto) (0-7) % Eos % (Auto) (0-6) % Baso % (Auto) (0-2) % Absolute Neuts (auto) (1.5-7.7) 10^3/ul Absolute Lymphs (auto) (1.0-4.8) 10^3/ul Absolute Monos (auto) (0-0.8) 10^3/ul Absolute Eos (auto) (0-0.6) 10^3/ul Absolute Basos (auto) (0-0.2) 10^3/ul Absolute Nucleated RBC 10^3/ul Nucleated RBC % INR (Anticoag Therapy) (0.77-1.02) APTT (26.0-36.3) seconds Sodium (135-145) mmol/L Potassium (3.5-5.0) mmol/L Chloride (101-111) mmol/L Carbon Dioxide (22-32) mmol/L Anion Gap (2-11) mmol/L BUN (6-24) mg/dL Creatinine (0.51-0.95) mg/dL Est GFR ( Amer) (>60) Est GFR (Non-Af Amer) (>60) BUN/Creatinine Ratio (8-20) Glucose (70-100) mg/dL Lactic Acid 4.1 H* (0.5-2.0) mmol/L Calcium (8.6-10.3) mg/dL Total Bilirubin (0.2-1.0) mg/dL AST (13-39) U/L ALT (7-52) U/L Alkaline Phosphatase (34-104) U/L Total Creatine Kinase Troponin I (<0.04) ng/mL Total Protein (6.4-8.9) g/dL Albumin (3.2-5.2) g/dL Globulin (2-4) g/dL Albumin/Globulin Ratio (1-3) Urine Color Yellow Urine Appearance Clear Urine pH 5.0 (5-9) Ur Specific [place] 1.015 (1.010-1.030) Urine Protein 2+(100 mg/dl) A (Negative) Urine Ketones Negative (Negative) Urine Blood 3+ A (Negative) Urine Nitrate Negative (Negative) Urine Bilirubin Negative (Negative) Urine Urobilinogen Negative (Negative) Ur Leukocyte Esterase Negative (Negative) Urine WBC (Auto) Absent (Absent) Urine RBC (Auto) 1+(3-5/hpf) A (Absent) Ur Squamous Epith Cells Present A (Absent) Urine Bacteria Absent (Absent) Urine Glucose Negative (Negative) Microbiology and Other Data: Microbiology 11/15/17 14:17 Aerobic Blood Culture - Preliminary Blood Venous No Growth Day 1 Anaerobic Blood Culture - Preliminary No Growth Day 1 11/15/17 14:18 Aerobic Blood Culture - Preliminary Blood Venous No Growth Day 1 Anaerobic Blood Culture - Preliminary No Growth Day 1 Diagnostic Imaging: CARDIA ECHO: Conclusions Global left ventricular wall motion and contractility are within normal limits. There is normal left ventricular systolic function. This report is only to be considered final once signed by the Provider(s) as displayed in the "<Electronically Signed by >" field (s). Absence of a signature indicates the report is in a draft status and still needs to be finalized. In the event this document was created by someone other than the signing Provider, the individual initiating the document will be listed in the "Entered by:" or "Dictated by:" vaughn. The estimated ejection fraction is 60-65%. The right ventricular global systolic function is low normal. There is no evidence of aortic stenosis. There is a trace of mitral regurgitation. There is trace to mild tricuspid regurgitation. There is no significant pericardial effusion. CT [facility] Patient Name:VALARIE LERMA MR:[id number] : 1945 1. Hepatomegaly with hepatic steatosis. 2. Cholelithiasis. 3. Bilateral nonobstructive nephrolithiasis and proximal left ureterolithiasis. 4. Mild sigmoid colon diverticulitis. <Electronically signed by Jarrell Mackey MD in [place]> 11/15/171820 Dictated By: Jarrell aMckey MD Dictated Date/Time: 11/15/171820 Transcribed Date/Time: 11/15/171807 Copy to: Assess/Plan/Problems-Billing Assessment: This patient is a 72 year old admitted for weakness and rhabdo, she was on the floor and could not stand up from 01:00 to 6:30pm on the day of admission, when her neighbor found her and called for an ambulance. She has a PMHx of UTI, cardiac disease, psychiatric disorder. - Patient Problems (1) Rhabdomyolysis Code(s): M62.82 - RHABDOMYOLYSIS SNOMED Code(s): 288023184 Comment: - CK continues to trend down, 56131 today down from >44507 - Renal function normal, can be followed as an outpatient - PT eval shows no skilled PT needs, OK for VNS (2) Fall Comment: - Unclear if this was a mechanical fall vs inability to ambulate due to weakness - PT/OT, CGA with no skilled needs noted (3) CAD (coronary artery disease) Code(s): I25.10 - ATHSCL HEART DISEASE OF [place] CORONARY ARTERY W/O ANG PCTRS SNOMED Code(s): 02129310 Comment: - Continue ASA - No chest pain, ECHO as above (4) Psychiatric disorder Code(s): F99 - MENTAL DISORDER, NOT OTHERWISE SPECIFIED SNOMED Code(s): 88957597 Comment: - Continue risperidone and lamictal (5) Diverticulitis Code(s): K57.92 - DVTRCLI OF INTEST, PART UNSP, W/O PERF OR ABSCESS W/O BLEED SNOMED Code(s): 276122115 Comment: - No abdominal pain, no fever, leukocytosis resolved - Tolerating PO - Normal BM - Continue ceftriaxone, change to augmentin at discharge (6) DVT prophylaxis Code(s): COW6832 - SNOMED Code(s): 276095738 Comment: - HSQ (7) Full code status Code(s): Z78.9 - OTHER SPECIFIED HEALTH STATUS SNOMED Code(s): 631357915 Status and Disposition: Medically optimized for DC today. Dispo home with VNS, does not have STR needs. Per SW and CM, patient states she is not safe to go home. Will let SW advise if any changes.
[2017-11-17 17:39] LABS: EGFR Non-African American 63.3 (>60)
[2017-11-17] MEDS: lamoTRIgine TAB(*) 100 MG PO SCH (21:10)
[2017-11-17] MEDS: lamoTRIgine TAB(*) 25 MG PO SCH (21:10)
[2017-11-18] MEDS: Nystatin TOP POWDER* 15 GM BTL TOPICAL SCH ×3 (00:08→23:01)
[2017-11-18] MEDS: Acetaminophen TAB* 325 MG PO PRN ×2 (00:08→22:58)
[2017-11-18] MEDS: cefTRIAXone(*) 1 GM in NS 0.9% 50 ML* 50 ML IVPB SCH (00:13)
[2017-11-18] MEDS: Metoprolol Tartrate TAB* 25 MG PO SCH ×3 (02:13→13:25)
[2017-11-18] MEDS: Heparin VIAL(*) 5000 UNITS/ML VIAL (FIVE THOUSAND) SUBCUT SCH ×3 (05:47→21:38)
[2017-11-18] MEDS: Aspirin 81 mg CHEW TAB* 81 MG TAB.CHEW PO SCH (08:06)
[2017-11-18] MEDS ORDERED: Magnesium Sulfate 2 GM IV* 2 GM/50 ML BAG IVPB ONE (08:28)
[2017-11-18 12:18] LABS: Hematocrit 41 % (35-47); Hemoglobin 13.5 g/dl (12.0-16.0); Mean Corpuscular HGB Conc 33 g/dl (31-36); Mean Corpuscular Hemoglobin 27 pg (27-31); Mean Corpuscular Volume 82 fL (80-97); Red Blood Count 5.04 10^6/ul (4.00-5.40); Red Cell Distribution Width 15 % (10.5-15); White Blood Count 10.1 10^3/ul (3.5-10.8)
[2017-11-18 12:31] LABS: EGFR Non-African American 73.9 (>60)
[2017-11-18 12:32] LABS: ABS Basophils 0.1 10^3/ul (0-0.2); ABS Eosinophils 0.3 10^3/ul (0-0.6); ABS Monocytes 0.6 10^3/ul (0-0.8); ABS Neutrophils 7.3 10^3/ul (1.5-7.7); ABS Nucleated RBC 0 10^3/ul; Eosinophil % 2.9 % (0-6); Lymphocyte % 19.4 % (25-47); Mean Platelet Volume 8.2 um3 (7.4-10.4); Nucleated Red Blood Cells % 0.2; Platelet Count 271 10^3/ul (150-450)
[2017-11-18] MEDS: NS 0.9% 1000 ML* 1,000 ML IV SCH ×2 (13:49→23:09)
[2017-11-18] MEDS ORDERED: Potassium Chloride LIQUID* 20 MEQ PACKET PO ONE (16:21)
[2017-11-18] MEDS ORDERED: Potassium Chloride LIQUID* 20 MEQ PACKET ONE (16:25)
--- NOTE | 2017-11-18 16:28 | PN ---
Subjective Date of Service: 11/18/17 Interval History: complaint of loose stools ever since getting the oral contrast for CT abd/pel denies chest pain, SOB, fevers. No abdominal pain at all. CK 11K. IVF restarted. Objective Active Medications: Acetaminophen (Tylenol Tab*) 650 mg PO Q4H PRN PRN Reason: PAIN Last Admin: 11/18/17 00:08 Dose: 650 mg Aspirin (Aspirin 81 Mg Chew Tab*) 81 mg PO DAILY REPLACED BY [facility] Last Admin: 11/18/17 08:06 Dose: 81 mg Heparin Sodium (Porcine) (Heparin Vial(*)) 5,000 units SUBCUT Q8HR REPLACED BY [facility] Last Admin: 11/18/17 13:26 Dose: 5,000 units Ceftriaxone Sodium 1 gm/ (Sodium Chloride) 50 mls @ 200 mls/hr IVPB Q24H REPLACED BY [facility] Last Admin: 11/18/17 00:13 Dose: 200 mls/hr Sodium Chloride (Ns 0.9% 1000 Ml*) 1,000 mls @ 250 mls/hr IV PER RATE REPLACED BY [facility] Stop: 11/19/17 05:44 Last Admin: 11/18/17 13:49 Dose: 250 mls/hr Lamotrigine (Lamictal Tab(*)) 200 mg PO BEDTIME REPLACED BY [facility] Last Admin: 11/17/17 21:10 Dose: 200 mg Lamotrigine (Lamictal Tab(*)) 25 mg PO BEDTIME REPLACED BY [facility] Last Admin: 11/17/17 21:10 Dose: 25 mg Metoprolol Tartrate (Lopressor Tab*) 25 mg PO Q6H REPLACED BY [facility] Last Admin: 11/18/17 13:25 Dose: 25 mg Nystatin (Nystatin Top Powder*) 1 applic TOPICAL BID REPLACED BY [facility] Last Admin: 11/18/17 08:06 Dose: 1 applic Potassium Chloride (Klor-Con Liquid*) 40 meq PO ONCE ONE Stop: 11/18/17 16:22 Risperidone (Risperdal) 0.5 mg PO BEDTIME REPLACED BY [facility] Last Admin: 11/17/17 21:11 Dose: 0.5 mg Vital Signs - 8 hr 11/18/17 11:16 Temperature 97.7 F Pulse Rate 77 Respiratory 16 Rate Blood Pressure 125/68 (mmHg) O2 Sat by Pulse 98 Oximetry Oxygen Devices in Use Now: None Appearance: NAD, sitting in chair. Ears/Nose/Mouth/Throat: NL Teeth, Lips, Gums Neck: NL Appearance and Movements; NL JVP Respiratory: Symmetrical Chest Expansion and Respiratory Effort, Clear to Auscultation Cardiovascular: NL Sounds; No Murmurs; No JVD, RRR Abdominal: NL Sounds; No Tenderness; No Distention, No Hepatosplenomegaly Extremities: No Edema Skin: No Rash or Ulcers Neurological: Alert and Oriented x 3, NL Sensation Nutrition: Taking PO's Result Diagrams: 11/18/17 11:07 11/18/17 11:07 Additional Lab and Data: Laboratory Results - last 24 hr 11/17/17 11/18/17 11/18/17 17:12 11:07 11:07 WBC 10.1 RBC 5.04 Hgb 13.5 Hct 41 MCV 82 MCH 27 MCHC 33 RDW 15 Plt Count 271 MPV 8.2 Neut % (Auto) 71.6 Lymph % (Auto) 19.4 L [place] % (Auto) 5.5 Eos % (Auto) 2.9 Baso % (Auto) 0.6 Absolute Neuts (auto) 7.3 Absolute Lymphs (auto) 2.0 Absolute Monos (auto) 0.6 Absolute Eos (auto) 0.3 Absolute Basos (auto) 0.1 Absolute Nucleated RBC 0 Nucleated RBC % 0.2 Sodium 140 139 Potassium 3.6 3.4 L Chloride 106 106 Carbon Dioxide 26 23 Anion Gap 8 10 BUN 11 11 Creatinine 0.88 0.77 Est GFR ( Amer) 76.6 89.4 Est GFR (Non-Af Amer) 63.3 73.9 BUN/Creatinine Ratio 12.5 14.3 Glucose 102 H 153 H Calcium 8.7 8.7 Magnesium 1.8 L 2.4 Total Bilirubin 0.30 Direct Bilirubin 0.10 Indirect Bilirubin 0.2 L AST 253 H ALT 126 H Alkaline Phosphatase 68 Total Creatine Kinase 31880 H Total Protein 6.8 Albumin 3.6 Globulin 3.2 Albumin/Globulin Ratio 1.1 Microbiology and Other Data: Microbiology 11/15/17 14:17 Blood Venous Aerobic Blood Culture - Preliminary No Growth Day 3 11/15/17 14:17 Blood Venous Anaerobic Blood Culture - Preliminary No Growth Day 3 11/15/17 14:18 Blood Venous Aerobic Blood Culture - Preliminary Gram Positive Bacilli 11/15/17 14:18 Blood Venous Anaerobic Blood Culture - Preliminary No Growth Day 3 Diagnostic Imaging: CARDIA ECHO: Conclusions Global left ventricular wall motion and contractility are within normal limits. There is normal left ventricular systolic function. This report is only to be considered final once signed by the Provider(s) as displayed in the "<Electronically Signed by >" field (s). Absence of a signature indicates the report is in a draft status and still needs to be finalized. In the event this document was created by someone other than the signing Provider, the individual initiating the document will be listed in the "Entered by:" or "Dictated by:" vaughn. The estimated ejection fraction is 60-65%. The right ventricular global systolic function is low normal. There is no evidence of aortic stenosis. There is a trace of mitral regurgitation. There is trace to mild tricuspid regurgitation. There is no significant pericardial effusion. CT [facility] Patient Name:VALARIE LERMA MR:[id number] : 1945 1. Hepatomegaly with hepatic steatosis. 2. Cholelithiasis. 3. Bilateral nonobstructive nephrolithiasis and proximal left ureterolithiasis. 4. Mild sigmoid colon diverticulitis. <Electronically signed by Jarrell Mackey MD in [place]> 11/15/171820 Dictated By: Jarrell Mackey MD Dictated Date/Time: 11/15/171820 Transcribed Date/Time: 11/15/171807 Copy to: Assess/Plan/Problems-Billing Assessment: 72 year old H morbid obesity, HTN, bipolar, admitted for fall with prolonged down time and rhabdo. mild diveriticultis on ceftriaxone. CK peaked 22K currently 11K. - Patient Problems (1) Rhabdomyolysis Current Visit: Yes Status: Acute Code(s): M62.82 - RHABDOMYOLYSIS SNOMED Code(s): 264757801 Comment: - CK 11K still, has not been on on IVF since Thursday ~6PM. Restart again at 250cc/hr for next 16 hours. CK in AM. HYDROMETER CALIBRATOR stable. CMP in AM. likely the cause of AST>ALT elevations (AST improving, ALT slightly worse). strict io, please document daily weights monitor for signs of respiratory compromise. (2) HTN (hypertension) Current Visit: Yes Status: Acute Code(s): I10 - ESSENTIAL (PRIMARY) HYPERTENSION SNOMED Code(s): 50970819 Comment: currently on toprolol 25mg q6. switch to coreg 3.125mg BID. home losartan, dilt held on admission with sepsis like picture initially. (3) Elevated troponin Current Visit: Yes Status: Acute Code(s): R74.8 - ABNORMAL LEVELS OF OTHER SERUM ENZYMES SNOMED Code(s): 627749271 Comment: in setting of found down. EKG with some t-wave flattening. never chest pain, no wma on ECHO. (4) DVT prophylaxis Current Visit: Yes Status: Acute Code(s): FZN8514 - SNOMED Code(s): 468055020 Comment: - HSQ (5) Diverticulitis Current Visit: Yes Status: Acute Code(s): K57.92 - DVTRCLI OF INTEST, PART UNSP, W/O PERF OR ABSCESS W/O BLEED SNOMED Code(s): 920761475 Comment: - No abdominal pain, no fever, leukocytosis resolved - Tolerating PO - Normal BM - Continue ceftriaxone, change to augmentin at discharge (6) Fall Current Visit: Yes Status: Acute Comment: - Unclear if this was a mechanical fall vs inability to ambulate due to weakness - PT/OT rec of continued PT (7) Psychiatric disorder Current Visit: Yes Status: Acute Code(s): F99 - MENTAL DISORDER, NOT OTHERWISE SPECIFIED SNOMED Code(s): 61980791 Comment: - Continue risperidone and lamictal Status and Disposition: medicine inpatient. VNS and home PT needed.
[2017-11-18] MEDS: lamoTRIgine TAB(*) 25 MG PO SCH (21:32)
[2017-11-18] MEDS: lamoTRIgine TAB(*) 100 MG PO SCH (21:32)
[2017-11-18] MEDS: Carvedilol TAB* 3.125 MG PO SCH (22:38)
[2017-11-19] MEDS: cefTRIAXone(*) 1 GM in NS 0.9% 50 ML* 50 ML IVPB SCH (00:35)
[2017-11-19] MEDS: Heparin VIAL(*) 5000 UNITS/ML VIAL (FIVE THOUSAND) SUBCUT SCH ×3 (05:07→21:06)
[2017-11-19 07:36] LABS: EGFR Non-African American 89.9 (>60)
[2017-11-19] MEDS: Carvedilol TAB* 3.125 MG PO SCH ×2 (08:09→21:03)
[2017-11-19] MEDS: Acetaminophen TAB* 325 MG PO PRN (08:09)
[2017-11-19] MEDS: Aspirin 81 mg CHEW TAB* 81 MG TAB.CHEW PO SCH (08:10)
[2017-11-19] MEDS: Nystatin TOP POWDER* 15 GM BTL TOPICAL SCH ×2 (08:10→21:09)
--- NOTE | 2017-11-19 15:58 | PN ---
Subjective Date of Service: 11/19/17 Interval History: Overall feels better. Some pain in lower back, [id number]. Never had abd pain. No bowel c/o. Objective Active Medications: Acetaminophen (Tylenol Tab*) 650 mg PO Q4H PRN PRN Reason: PAIN Last Admin: 11/19/17 08:09 Dose: 650 mg Aspirin (Aspirin 81 Mg Chew Tab*) 81 mg PO DAILY [facility] Last Admin: 11/19/17 08:10 Dose: 81 mg Carvedilol (Coreg Tab*) 3.125 mg PO BID [facility] Last Admin: 11/19/17 08:09 Dose: 3.125 mg Cephalexin HCl (Keflex Cap*) 500 mg PO QID [facility] Heparin Sodium (Porcine) (Heparin Vial(*)) 5,000 units SUBCUT Q8HR [facility] Last Admin: 11/19/17 12:59 Dose: 5,000 units Potassium Chloride/Dextrose (D5w 1/2 Ns Kcl 20 Meq 1000 Ml*) 1,000 mls @ 150 mls/hr IV PER RATE [facility] Lamotrigine (Lamictal Tab(*)) 200 mg PO BEDTIME [facility] Last Admin: 11/18/17 21:32 Dose: 200 mg Lamotrigine (Lamictal Tab(*)) 25 mg PO BEDTIME [facility] Last Admin: 11/18/17 21:32 Dose: 25 mg Nystatin (Nystatin Top Powder*) 1 applic TOPICAL BID [facility] Last Admin: 11/19/17 08:10 Dose: Not Given Risperidone (Risperdal) 0.5 mg PO BEDTIME [facility] Last Admin: 11/18/17 21:32 Dose: 0.5 mg Vital Signs - 8 hr 11/19/17 11/19/17 11/19/17 07:59 11:23 12:49 Temperature 98.4 F 97.8 F Pulse Rate 85 82 Respiratory 18 16 Rate Blood Pressure 140/63 135/76 (mmHg) O2 Sat by Pulse 99 98 Oximetry Oxygen Devices in Use Now: None Appearance: Alert, sitting on the edge of her bed. In good spirits. Looks comfortable. Eyes: No Scleral Icterus Extremities: No Edema, No Clubbing, Cyanosis Skin: No Nodules or Sclerosis, - - extensor surfaces both elbows and knees have 6 cm abraded areas with some eschar. Ecchymosis L deltoid area. Neurological: Alert and Oriented x 3, NL Sensation Result Diagrams: 11/18/17 11:07 11/19/17 06:46 Additional Lab and Data: Laboratory Results - last 24 hr 11/17/17 11/18/17 11/18/17 17:12 11:07 11:07 WBC 10.1 RBC 5.04 Hgb 13.5 Hct 41 MCV 82 MCH 27 MCHC 33 RDW 15 Plt Count 271 MPV 8.2 Neut % (Auto) 71.6 Lymph % (Auto) 19.4 L [place] % (Auto) 5.5 Eos % (Auto) 2.9 Baso % (Auto) 0.6 Absolute Neuts (auto) 7.3 Absolute Lymphs (auto) 2.0 Absolute Monos (auto) 0.6 Absolute Eos (auto) 0.3 Absolute Basos (auto) 0.1 Absolute Nucleated RBC 0 Nucleated RBC % 0.2 Sodium 140 139 Potassium 3.6 3.4 L Chloride 106 106 Carbon Dioxide 26 23 Anion Gap 8 10 BUN 11 11 Creatinine 0.88 0.77 Est GFR ( Amer) 76.6 89.4 Est GFR (Non-Af Amer) 63.3 73.9 BUN/Creatinine Ratio 12.5 14.3 Glucose 102 H 153 H Calcium 8.7 8.7 Magnesium 1.8 L 2.4 Total Bilirubin 0.30 Direct Bilirubin 0.10 Indirect Bilirubin 0.2 L AST 253 H ALT 126 H Alkaline Phosphatase 68 Total Creatine Kinase 79864 H Total Protein 6.8 Albumin 3.6 Globulin 3.2 Albumin/Globulin Ratio 1.1 Microbiology and Other Data: Microbiology 11/15/17 14:17 Blood Venous Aerobic Blood Culture - Preliminary No Growth Day 3 11/15/17 14:17 Blood Venous Anaerobic Blood Culture - Preliminary No Growth Day 3 11/15/17 14:18 Blood Venous Aerobic Blood Culture - Preliminary Gram Positive Bacilli 11/15/17 14:18 Blood Venous Anaerobic Blood Culture - Preliminary No Growth Day 3 Diagnostic Imaging: CARDIA ECHO: Conclusions Global left ventricular wall motion and contractility are within normal limits. There is normal left ventricular systolic function. This report is only to be considered final once signed by the Provider(s) as displayed in the "<Electronically Signed by >" field (s). Absence of a signature indicates the report is in a draft status and still needs to be finalized. In the event this document was created by someone other than the signing Provider, the individual initiating the document will be listed in the "Entered by:" or "Dictated by:" vaughn. The estimated ejection fraction is 60-65%. The right ventricular global systolic function is low normal. There is no evidence of aortic stenosis. There is a trace of mitral regurgitation. There is trace to mild tricuspid regurgitation. There is no significant pericardial effusion. CT ABD [facility] Patient Name:VALARIE LERMA MR:[id number] : 1945 1. Hepatomegaly with hepatic steatosis. 2. Cholelithiasis. 3. Bilateral nonobstructive nephrolithiasis and proximal left ureterolithiasis. 4. Mild sigmoid colon diverticulitis. <Electronically signed by Jarrell Mackey MD in [place]> 11/15/171820 Dictated By: Jarrell Mackey MD Dictated Date/Time: 11/15/171820 Transcribed Date/Time: 11/15/171807 Copy to: Assess/Plan/Problems-Billing Assessment: 72 year old PMH morbid obesity, HTN, bipolar, admitted for fall with prolonged down time and rhabdo. mild diveriticultis on ceftriaxone. CK peaked 22K currently 11K. - Patient Problems (1) Rhabdomyolysis Current Visit: Yes Status: Acute Code(s): M62.82 - RHABDOMYOLYSIS SNOMED Code(s): 320537849 Comment: IV fluids at 150 ml/hr through 11/20, repeat BMP, CK. (2) HTN (hypertension) Current Visit: Yes Status: Acute Code(s): I10 - ESSENTIAL (PRIMARY) HYPERTENSION SNOMED Code(s): 28373024 Comment: continue coreg 3.125mg BID. diltiazem on hold. (3) CAD (coronary artery disease) Current Visit: Yes Status: Acute Code(s): I25.10 - ATHSCL HEART DISEASE OF [place] CORONARY ARTERY W/O ANG PCTRS SNOMED Code(s): 01133047 Comment: - Continue ASA - No chest pain, echo unremarkable. (4) Morbid obesity Current Visit: Yes Status: Acute Code(s): E66.01 - MORBID (SEVERE) OBESITY DUE TO EXCESS CALORIES SNOMED Code(s): 754406703 Comment: BMI 45.2. Status and Disposition: medicine inpatient. VNS and home PT needed.
[2017-11-19] MEDS: Cephalexin CAP* 500 MG PO SCH ×2 (17:35→21:03)
[2017-11-19] MEDS: D5W 1/2 NS KCl 20 Meq 1000 ML* 1,000 ML IV SCH (17:36)
[2017-11-19] MEDS: lamoTRIgine TAB(*) 100 MG PO SCH (21:03)
[2017-11-19] MEDS: lamoTRIgine TAB(*) 25 MG PO SCH (21:05)
[2017-11-20] MEDS: D5W 1/2 NS KCl 20 Meq 1000 ML* 1,000 ML IV SCH (02:42)
[2017-11-20] MEDS: Acetaminophen TAB* 325 MG PO PRN (04:25)
[2017-11-20] MEDS: Heparin VIAL(*) 5000 UNITS/ML VIAL (FIVE THOUSAND) SUBCUT SCH ×2 (06:17→13:32)
[2017-11-20 06:40] LABS: EGFR Non-African American 89.9 (>60)
[2017-11-20] MEDS: Nystatin TOP POWDER* 15 GM BTL TOPICAL SCH (08:02)
[2017-11-20] MEDS: Carvedilol TAB* 3.125 MG PO SCH (08:41)
[2017-11-20] MEDS: Aspirin 81 mg CHEW TAB* 81 MG TAB.CHEW PO SCH (08:41)
[2017-11-20] MEDS: Cephalexin CAP* 500 MG PO SCH (08:41)
--- NOTE | 2017-11-20 10:33 | PN ---
Subjective Date of Service: 11/20/17 Interval History: Feeling overall better. Some back pain. Objective Active Medications: Acetaminophen (Tylenol Tab*) 650 mg PO Q4H PRN PRN Reason: PAIN Last Admin: 11/20/17 04:25 Dose: 650 mg Aspirin (Aspirin 81 Mg Chew Tab*) 81 mg PO DAILY [facility] Last Admin: 11/20/17 08:41 Dose: 81 mg Carvedilol (Coreg Tab*) 3.125 mg PO BID [facility] Last Admin: 11/20/17 08:41 Dose: 3.125 mg Cephalexin HCl (Keflex Cap*) 500 mg PO QID [facility] Last Admin: 11/20/17 08:41 Dose: 500 mg Heparin Sodium (Porcine) (Heparin Vial(*)) 5,000 units SUBCUT Q8HR [facility] Last Admin: 11/20/17 06:17 Dose: 5,000 units Lamotrigine (Lamictal Tab(*)) 200 mg PO BEDTIME [facility] Last Admin: 11/19/17 21:03 Dose: 200 mg Lamotrigine (Lamictal Tab(*)) 25 mg PO BEDTIME [facility] Last Admin: 11/19/17 21:05 Dose: 25 mg Nystatin (Nystatin Top Powder*) 1 applic TOPICAL BID [facility] Last Admin: 11/20/17 08:02 Dose: Not Given Risperidone (Risperdal) 0.5 mg PO BEDTIME [facility] Last Admin: 11/19/17 21:04 Dose: 0.5 mg Vital Signs - 8 hr 11/20/17 11/20/17 11/20/17 03:39 04:09 07:42 Temperature 97.7 F 97.7 F 97.4 F Pulse Rate 89 89 80 Respiratory 16 16 20 Rate Blood Pressure 142/71 142/71 139/73 (mmHg) O2 Sat by Pulse 100 100 97 Oximetry 11/20/17 07:50 Temperature Pulse Rate Respiratory 18 Rate Blood Pressure (mmHg) O2 Sat by Pulse Oximetry Oxygen Devices in Use Now: None Appearance: Alert, partly up in bed. In good spirits. Looks comfortable. Eyes: No Scleral Icterus Extremities: No Edema, No Clubbing, Cyanosis Skin: No Nodules or Sclerosis, - - Healing abrasion L knee. R knee and both elbows bandaged. Neurological: Alert and Oriented x 3, NL Sensation Result Diagrams: 11/18/17 11:07 11/20/17 06:06 Additional Lab and Data: Laboratory Results - last 24 hr 11/17/17 11/18/17 11/18/17 17:12 11:07 11:07 WBC 10.1 RBC 5.04 Hgb 13.5 Hct 41 MCV 82 MCH 27 MCHC 33 RDW 15 Plt Count 271 MPV 8.2 Neut % (Auto) 71.6 Lymph % (Auto) 19.4 L [place] % (Auto) 5.5 Eos % (Auto) 2.9 Baso % (Auto) 0.6 Absolute Neuts (auto) 7.3 Absolute Lymphs (auto) 2.0 Absolute Monos (auto) 0.6 Absolute Eos (auto) 0.3 Absolute Basos (auto) 0.1 Absolute Nucleated RBC 0 Nucleated RBC % 0.2 Sodium 140 139 Potassium 3.6 3.4 L Chloride 106 106 Carbon Dioxide 26 23 Anion Gap 8 10 BUN 11 11 Creatinine 0.88 0.77 Est GFR ( Amer) 76.6 89.4 Est GFR (Non-Af Amer) 63.3 73.9 BUN/Creatinine Ratio 12.5 14.3 Glucose 102 H 153 H Calcium 8.7 8.7 Magnesium 1.8 L 2.4 Total Bilirubin 0.30 Direct Bilirubin 0.10 Indirect Bilirubin 0.2 L AST 253 H ALT 126 H Alkaline Phosphatase 68 Total Creatine Kinase 09677 H Total Protein 6.8 Albumin 3.6 Globulin 3.2 Albumin/Globulin Ratio 1.1 Microbiology and Other Data: Microbiology 11/15/17 14:17 Blood Venous Aerobic Blood Culture - Preliminary No Growth Day 3 11/15/17 14:17 Blood Venous Anaerobic Blood Culture - Preliminary No Growth Day 3 11/15/17 14:18 Blood Venous Aerobic Blood Culture - Preliminary Gram Positive Bacilli 11/15/17 14:18 Blood Venous Anaerobic Blood Culture - Preliminary No Growth Day 3 Diagnostic Imaging: CARDIA ECHO: Conclusions Global left ventricular wall motion and contractility are within normal limits. There is normal left ventricular systolic function. This report is only to be considered final once signed by the Provider(s) as displayed in the "<Electronically Signed by >" field (s). Absence of a signature indicates the report is in a draft status and still needs to be finalized. In the event this document was created by someone other than the signing Provider, the individual initiating the document will be listed in the "Entered by:" or "Dictated by:" vaughn. The estimated ejection fraction is 60-65%. The right ventricular global systolic function is low normal. There is no evidence of aortic stenosis. There is a trace of mitral regurgitation. There is trace to mild tricuspid regurgitation. There is no significant pericardial effusion. CT ABD [facility] Patient Name:VALARIE LERMA MR:[id number] : 1945 1. Hepatomegaly with hepatic steatosis. 2. Cholelithiasis. 3. Bilateral nonobstructive nephrolithiasis and proximal left ureterolithiasis. 4. Mild sigmoid colon diverticulitis. <Electronically signed by Jarrell Mackey MD in [place]> 11/15/171820 Dictated By: Jarrell Mackey MD Dictated Date/Time: 11/15/171820 Transcribed Date/Time: 11/15/171807 Copy to: Assess/Plan/Problems-Billing Assessment: 72 year old H morbid obesity, HTN, bipolar, admitted for fall with prolonged down time and rhabdo. mild diveriticultis on ceftriaxone. CK peaked 22K currently 11K. - Patient Problems (1) Rhabdomyolysis Current Visit: Yes Status: Acute Code(s): M62.82 - RHABDOMYOLYSIS SNOMED Code(s): 968621729 Comment: CK down to 5374. D/C IV fluids. Needs outpt fup. (2) HTN (hypertension) Current Visit: Yes Status: Acute Code(s): I10 - ESSENTIAL (PRIMARY) HYPERTENSION SNOMED Code(s): 11118241 Comment: continue coreg 3.125mg BID. diltiazem on hold. (3) CAD (coronary artery disease) Current Visit: Yes Status: Acute Code(s): I25.10 - ATHSCL HEART DISEASE OF [place] CORONARY ARTERY W/O ANG PCTRS SNOMED Code(s): 98251175 Comment: - Continue ASA - No chest pain, echo unremarkable. (4) Morbid obesity Current Visit: Yes Status: Acute Code(s): E66.01 - MORBID (SEVERE) OBESITY DUE TO EXCESS CALORIES SNOMED Code(s): 761157297 Comment: BMI 45.2. (5) Skin abrasion Current Visit: Yes Status: Acute Code(s): T14.8XXA - OTHER INJURY OF UNSPECIFIED BODY REGION, INITIAL ENCOUNTER SNOMED Code(s): 597420150 Comment: Stop cephalexin. Status and Disposition: medicine inpatient. VNS and home PT needed.
[2017-11-20] MEDS ORDERED: risperiDONE TAB* 1 MG PO PRN (11:15)
--- NOTE | 2017-11-20 13:49 | PN ---
Progress Note - Progress Note Date of Service: 11/20/17 Note: Time spent on discharge, including discussion with patient, nurse, CM, exam of pt, review of EMR and preparatinof discharge documents was 45 minutes.
[2017-11-20 14:05] VITALS: BP 129/97
--- NOTE | 2017-11-21 01:23 | DS ---
CC: Dr. Conde DISCHARGE SUMMARY: DATE OF ADMISSION: 11/15/17 DATE OF DISCHARGE: 11/20/17 HOSPITAL COURSE: This 72-year-old woman presented today after 2 falls. The first time she refused t o allow an ambulance to be called, the second time she allowed the ambulance to come and bring her to the emergency room. She could not get up. She has been on the ground for several hours I think for both episodes. The rest of the history is detailed in the admission note. She had abrasions on both elbows and both knees. She had rhabdomyolysis. She was given intravenous fluids for some time. Her CK peaked at 22,000 and fell to 5000 by the day of discharge. Renal funct ion was preserved with a creatinine of 0.65 on the day of discharge. She had physical therapy and she was felt to be able to manage at home. She will get some home servi tiffani from [facility] as well. Her blood pressure medication was changed while she was here. She was given s ome antibiotics partly in the thought she might have diverticulitis and partly for her skin abrasions . I think the clinical evidence is against her having any diverticulitis. There were some changes o n CT scan, but I think these were not clinically relevant to her. Her skin is I think healing well a nd she would probably not benefit from further antibiotics at this time. FINAL DIAGNOSES: 1. Rhabdomyolysis. 2. Hypertension. 3. Coronary artery disease. 4. Morbid obesity. 5. Skin abrasions. DISCHARGE MEDICATIONS: 1. Aspirin 81 mg daily. 2. Carvedilol 3.125 mg b.i.d. 3. Lactobacillus acidophilus probiotic 1 daily. 4. Lamotrigine 225 mg at bedtime. 5. Risperidone 0.5 mg at bedtime. Losartan and diltiazem have been discontinued. The carvedilol is new. [id number]/[facility] #: [id number]
== END 2017-11-20 14:46 | disposition home or self-care (01) | DRG 565 ==
LOC: ED 12:50 → MEDTELE 17:02
PROVIDERS: ADMIT Internal Medicine; ATTEND Internal Medicine
DX: T79.6XXA Traumatic ischemia of muscle, initial encounter (principal); Z68.42 Body mass index [BMI] 45.0-49.9, adult; E87.2 Acidosis; N20.1 Calculus of ureter; F31.9 Bipolar disorder, unspecified; I10 Essential (primary) hypertension; E66.01 Morbid (severe) obesity due to excess calories; S80.02XA Contusion of left knee, initial encounter; S80.01XA Contusion of right knee, initial encounter; S50.02XA Contusion of left elbow, initial encounter; S50.01XA Contusion of right elbow, initial encounter; K80.20 Calculus of gallbladder without cholecystitis without obstruction; R73.9 Hyperglycemia, unspecified; W01.0XXA Fall on same level from slipping, tripping and stumbling without subsequent striking against object, initial encounter; R74.8 Abnormal levels of other serum enzymes; Z87.891 Personal history of nicotine dependence; Z83.3 Family history of diabetes mellitus; Z80.6 Family history of leukemia; Z80.49 Family history of malignant neoplasm of other genital organs; Z82.0 Family history of epilepsy and other diseases of the nervous system; Z82.49 Family history of ischemic heart disease and other diseases of the circulatory system; Z72.89 Other problems related to lifestyle; Z88.8 Allergy status to other drugs, medicaments and biological substances; Z91.040 Latex allergy status; Z86.19 Personal history of other infectious and parasitic diseases; Z87.440 Personal history of urinary (tract) infections; Y92.009 Unspecified place in unspecified non-institutional (private) residence as the place of occurrence of the external cause; Z79.82 Long term (current) use of aspirin
CPT/HCPCS: 36415; 71045; 74176; 80048; 80053; 80076; 80175; 81003; 81015; 82550; 83036; 83605; 83735; 83880; 84145; 84484; 85025; 85610; 85730; 87040; 87077; 87205; 93005; 93306; 99284; A9270-GY; C8929; G8978-GP-CI; G8979-GP-CH; G8981-GP-CJ; G8982-GP-CI; J0696; J1644; J2543; J3475

== ENCOUNTER 2018-03-07 01:35 | Inpatient (IN) | payer MEDICARE ==
--- NOTE | 2018-03-07 02:06 | ED ---
Complex/Multi-Sys Presentation - HPI Summary HPI Summary: This patient is a 73 year old F brought in by ambulance to [facility] with a chief complaint of weakness that began prior to arrival. She denies hitting her head upon falling. The patient rates the pain 0/10 in severity. Symptoms aggravated by nothing. Symptoms alleviated by nothing. Patient reports increased urinary frequency, nausea, and headache. Patient states she had difficulty getting out of her recliner. Later she then fell over and could not get up on her own. Patient states she had a similar occurrence in October. - History Of Current Complaint Chief Complaint: EDWeakness Time Seen by Provider: 03/07/18 01:57 Hx Obtained From: Patient Onset/Duration: Sudden Onset, Lasting Hours, Still Present Timing: Constant Severity Currently: Mild Severity Initially: Mild Aggravating Factor(s): Nothing Alleviating Factor(s): Nothing Associated Signs And Symptoms: Positive: Headache, Nausea - Allergies/Home Medications Allergies/Adverse Reactions: Allergies Allergy/AdvReac Type Severity Reaction Status Date / Time fluoxetine [From Prozac] Allergy See Comment Verified 03/07/18 01:48 latex Allergy See Comment Verified 03/07/18 01:48 lithium Allergy See Comment Verified 03/07/18 01:48 olanzapine [From Zyprexa] Allergy See Comment Verified 03/07/18 01:48 [place] Allergy Anaphylatic Uncoded 11/15/17 13:14 Shock PMH/Surg Hx/FS Hx/Imm Hx Previously Healthy: No Endocrine/Hematology History: Denies: Hx Diabetes Cardiovascular History: Reports: Hx Hypertension History: Denies: Hx Renal Disease Musculoskeletal History: Reports: Other Musculoskeletal History - weakness/falls Sensory History: Reports: Hx Contacts or Glasses Denies: Hx Deafness, Hx Hearing Aid Opthamlomology History: Reports: Hx Contacts or Glasses Psychiatric History: Reports: Hx Bipolar Disorder - Surgical History Surgery Procedure, Year, and Place: D&C Infectious Disease History: No Infectious Disease History: Reports: Hx Shingles Denies: Traveled Outside the [place] in Last 30 Days - Family History Known Family History: Positive: Cardiac Disease - Social History Occupation: Retired Lives: Alone Alcohol Use: None Hx Substance Use: No Substance Use Type: Reports: None Hx Tobacco Use: Yes Smoking Status (MU): Former Smoker Review of Systems Positive: Nausea Positive: frequency Positive: Headache, Weakness All Other Systems Reviewed And Are Negative: Yes Physical Exam - Summary Physical Exam Summary: Appearance: Well-appearing, Obese, lying in bed comfortably Skin: Warm, dry, no obvious rash Eyes: sclera anicteric, no conjunctival pallor ENT: mucous membranes moist, pharynx appears normal Neck: Supple, nontender Respiratory: Clear to auscultation, no signs of respiratory distress Cardiovascular: Normal S1, S2. No murmurs. Normal distal pulses in tibial and radial bilaterally. Abdomen: Soft, mild LLQ abdominal tenderness, normal active bowel sounds present Musculoskeletal: Trace pitting edema in the legs, Strength/ROM Intact Neurological: A&Ox3, awake and alert, mentation is normal, speech is fluent and appropriate Psychiatric: affect is normal, does not appear anxious or depressed Triage Information Reviewed: Yes Vital Signs On Initial Exam: Initial Vitals Temp Pulse Resp BP Pulse Ox 99 F 71 16 129/53 94 03/07/18 01:37 03/07/18 01:37 03/07/18 01:37 03/07/18 01:37 03/07/18 01:37 Vital Signs Reviewed: Yes Diagnostics - Vital Signs Vital Signs Temp Pulse Resp BP Pulse Ox 03/07/18 01:37 99 F 71 16 129/53 94 - Laboratory Result Diagrams: 03/09/18 05:48 03/09/18 05:48 Lab Statement: Any lab studies that have been ordered have been reviewed, and results considered in the medical decision making process. - CT Brain CT CT Interpretation Completed By: Radiologist Summary of CT Findings: Brain CT reveals, per radiologist, 1. No traumatic intracranial abnormalities. 2. Age-related atrophy and mild chronic small vessel ischemic disease. ED physician has reviewed this radiology report. - EKG 0234 Cardiac Rate: NL EKG Rhythm: Sinus Rhythm ST Segment: Normal Ectopy: None Summary of EKG Findings: NSR at 91BPM, P waves, QRS complex, and T waves are within normal limits, T waves and intervals are normal, no ischemic changes. This is a normal EKG Complex Multi-Symp Course/Dx - Diagnoses Provider Diagnoses: Acute diverticulitis, Weakness Discharge - Sign-Out/Discharge Documenting (check all that apply): Patient Departure - Discharge Plan Condition: Fair Disposition: ADMITTED TO [facility] - Billing Disposition and Condition Condition: FAIR Disposition: Admitted to [facility] - Attestation Statements Document Initiated by Scribe: Yes Documenting Scribe: Sara Irvin Provider For Whom Scribe is Documenting (Include Credential): Dr. Shaheen Piper MD Scribe Attestation: I, Sara Irvin, scribed for Dr. Shaheen Piper MD on 03/15/18 at 0055. Scribe Documentation Reviewed: Yes Provider Attestation: The documentation as recorded by the scribe, Sara Irvin accurately reflects the service I personally performed and the decisions made by me, Dr. Shaheen Piper MD
[2018-03-07 02:24] LABS: ABS Basophils 0.1 10^3/ul (0-0.2); ABS Eosinophils 0.2 10^3/ul (0-0.6); ABS Lymphocytes 1.1 10^3/ul (1.0-4.8); ABS Monocytes 0.6 10^3/ul (0-0.8); ABS Neutrophils 11.9 10^3/ul (1.5-7.7); ABS Nucleated RBC 0 10^3/ul; Eosinophil % 1.3 % (0-6); Hematocrit 34 % (35-47); Hemoglobin 11.2 g/dl (12.0-16.0); Lymphocyte % 7.8 % (25-47); Mean Corpuscular HGB Conc 33 g/dl (31-36); Mean Corpuscular Hemoglobin 26 pg (27-31); Mean Corpuscular Volume 78 fL (80-97); Mean Platelet Volume 7.3 fL (7.4-10.4); Nucleated Red Blood Cells % 0; Platelet Count 280 10^3/ul (150-450); Red Blood Count 4.34 10^6/ul (4.00-5.40); Red Cell Distribution Width 16 % (10.5-15); White Blood Count 13.8 10^3/ul (3.5-10.8)
[2018-03-07 03:27] LABS: Urine Appearance Clear; Urine Blood 3+ (Negative); Urine Color Yellow; Urine Ketones Negative (Negative); Urine Protein Negative (Negative); Urine Red Blood Cell 3+(>10/hpf) (Absent); Urine Specific Gravity 1.013 (1.010-1.030); Urine Urobilinogen Negative (Negative); Urine White Blood Cell Trace(0-5/hpf) (Absent)
[2018-03-07] MEDS ORDERED: Potassium Chlor TAB* 20 MEQ TAB.ER PO ONE (03:40)
[2018-03-07] MEDS ORDERED: Iohexol 300* (CONTRAST) 10 ML SDV IV ONE (03:51)
[2018-03-07] MEDS ORDERED: Piperacillin/Tazobac ADVAN(*) 3.375 GM in NS 0.9% 100 ML* 100 ML IVPB ONE (06:41)
[2018-03-07] MEDS ORDERED: Magnesium Sulf 4 GM/100 ML IV* 4,000 MG/100 ML BAG IVPB ONE (07:30)
--- NOTE | 2018-03-07 07:52 | ED ---
Progress - Progress Note Progress Note: Patient was signed out to Dr. Robert via Dr. Piper, pending admission, on 2017 during shift change at 0700. CT A/P: IMPRESSION: 1. Colonic diverticulosis with minimal diverticulitis of a specific culprit diverticulum projecting medially from the splenic flexure which is new since 11/15/2017. There is also mild diverticulitis from the distal descending colon to the mid sigmoid colon which is increased since the prior study. No perforation or pericolonic abscess is seen. 2. Minimal cholelithiasis. 3. Slight nodular fullness of the left adrenal which is unchanged from the prior study. 4. Small nonobstructing left renal calculus. 5. Fatty infiltration of the liver. Course/Dx - Course Course Of Treatment: Patient was signed out from Dr. Recinos pending admission for this patient. He reports that the patient is a 73-year-old female who was found on the floor and he thinks that the patient has an acute diverticulitis. Abdominopelvic CT is pending. Test results shows a wbcs of 13.8, slight anemia , potassium is 2.8, magnesium is 1.5 and the urinalysis is negative for UTI. In the ED course, the patient was given magnesium IV, potassium by mouth and Zosyn. Abdominal pelvic CT shows and positive for diverticulitis. Because of the patients weakness and the ability to ambulate, Dr. Recinos requests for the patient to be admitted. At this time I discussed my physical exam and findings with Dr. Aguila from the hospital services who accepted the patient for admission. Patient is hemodynamically stable. - Diagnoses Provider Diagnoses: Acute diverticulitis, Weakness - Provider Notifications Discussed Care Of Patient With: Donte Aguila Time Discussed With Above Provider: 07:20 Instructed by Provider To: Other - Accepts patient for admission. Discharge - Sign-Out/Discharge Documenting (check all that apply): Patient Departure - ADMIT, Sign-Out Patient - Ayla Signing out patient TO: Donte Aguila Receiving patient FROM: Zurdo Robert - Discharge Plan Condition: Stable Disposition: ADMITTED TO [facility] - Billing Disposition and Condition Condition: STABLE Disposition: Admitted to [facility] - Attestation Statements Document Initiated by Scribe: Yes Documenting Scribe: Chad Lara Provider For Whom Scribe is Documenting (Include Credential): Zurdo Robert MD Scribe Attestation: I, Chad Lara, scribed for Zurdo Robert MD on 03/07/18 at 1827. Scribe Documentation Reviewed: Yes Provider Attestation: The documentation as recorded by the [email or web address] accurately reflects the service I personally performed and the decisions made by me, Zurdo Robert MD Attestations User Type: Provider with Scribe Provider Attestation: The documentation recorded by the scribe accurately reflects the service I personally performed and the decisions made by me.
[2018-03-07] MEDS ORDERED: Potassium Chlor TAB* 20 MEQ TAB.ER PO STA (08:03)
[2018-03-07] MEDS ORDERED: Ondansetron INJ* 2 MG/ML VIAL IV PRN (08:03)
[2018-03-07] MEDS ORDERED: Senna/Docusate (NF) TAB PO SCH (09:00)
[2018-03-07] MEDS: metroNIDAZOLE IV 500 MG/100ML* 500 MG/100 ML BAG IVPB SCH ×2 (09:09→19:49)
[2018-03-07] MEDS ORDERED: Levofloxacin 750 MG IVPREMIX(* 750 MG/150 ML BAG IVPB SCH (10:00)
[2018-03-07] MEDS: Polyethylene Glycol 3350* 17 GM PACKET PO SCH (10:33)
[2018-03-07] MEDS: Carvedilol TAB* 3.125 MG PO SCH ×2 (10:36→19:51)
[2018-03-07] MEDS: Senna TAB PO SCH (10:36)
[2018-03-07] MEDS: Enoxaparin(*) 40 MG/0.4 ML SYR SUBCUT SCH (10:37)
[2018-03-07] MEDS: Aspirin 81 mg CHEW TAB* 81 MG TAB.CHEW PO SCH (10:37)
[2018-03-07] MEDS: Docusate CAP* 100 MG PO SCH (10:37)
--- NOTE | 2018-03-07 14:32 | HP ---
ADMITTING HISTORY AND PHYSICAL: DATE OF ADMISSION: 03/07/18 CHIEF COMPLAINT: Weakness. HISTORY OF PRESENT ILLNESS: The patient is a 73-year-old lady with history of morbid obesity, hypertension and frequent falls, and was last admitted at the end of October and discharged on 11/20/17 for frequent falls, where at that time she was diagnosed with rhabdomyolysis and has fallen twice. She has been in her usual state of health, and since her discharge, she mentions that she did not have any medication changes until a few hours prior to admission when she mentioned that she found herself stuck in her recliner at around 12:30 a.m. and called an ambulance, but managed to get herself out of a difficult position when the ambulance arrived. She mentioned that she was okay and upon closing the door when the EMS personnel left, she felt a bit "unbalanced." However, she went up to her bedroom and tried to change her underwear while standing up, where she mentions she usually does this safely when she is sitting down. She lost her balance, fell forward and mentioned that she might have hit her head probably on a desk before landing on a pile of clothes on her floor. She mentions that she did not lose any consciousness nor did she have any chest pain nor any other symptoms prior, during, and after the fall. However, she was unable to get up and she activated her Medical Alert, which led to her being brought to the ED. In the ED, she was being examined by the ER physician, who noted the left lower quadrant tenderness and an abdominal and pelvic CT with contrast was done, which showed mild diverticulitis with mild cholelithiasis and incidental finding of fatty liver disease. It is further noted that she has difficulty getting up in the ER and unable to ambulate safely, and given her weakness and steady gait as well as her diverticulitis, she will be admitted. In the ED, she had received Zosyn prior to any cultures being drawn. She has also received 40 mEq of potassium chloride as well as IV contrast with the abdominal and pelvic CT. I have added 40 more mEq of potassium to her regimen as well as magnesium sulfate IV. PAST MEDICAL HISTORY: Hypertension, bipolar disease, morbid obesity, CAD, and possible CHF during her last admission. MEDICATIONS: Home medications are as follows: 1. Probiotic supplement. 2. Risperidone 0.5 mg p.o. q.h.s. 3. Lamotrigine 225 mg p.o. q.h.s. 4. Carvedilol 3.125 mg p.o. b.i.d. ALLERGIES: PROZAC, LATEX, SEROQUEL, and LOBSTERS. FAMILY HISTORY: Her mother at the age of 90 due to leukemia. Father of unknown cause at the age of 86 with history of diabetes, hypertension, Alzheimer's disease. Sister of cervical cancer at the age of 56. 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 Her medical surrogate is Kee Cordova, her sister. She is a former smoker, who quit in the year of 1999. She has been smoking for 30 years with each year an average of 1 pack per year. She never was a heavy drinker and imbibes alcohol approximately about 3 times a year. She denies any history of any IV drug nor illicit drug use in the past. She decided to be full code given her congregational belief. She has lived in [place] for 6 years and hardly ever leaves the house. She mentions that she knows no one in the community. REVIEW OF SYSTEMS: She denied any headaches, dizziness, fevers, chills, nausea , vomiting. She does have some abdominal tenderness on the left lower quadrant , but otherwise no significant abdominal pain. She denies any diarrhea, but mentions she is constipated for quite a few number of days. Her last bowel movement was yesterday, although it was only a small amount. She is unclear of when her last good bowel movement was. She denied any myalgias, arthralgias, throat pain, or new skin lesions. The rest of the 14-point review of systems other than what was described are otherwise unremarkable. PHYSICAL EXAMINATION VITAL SIGNS: Reveals the most recent vital signs of records with blood pressure of 125/60, 70 beats per minute heart rate, 98% saturation. GENERAL APPEARANCE: The patient is awake, alert, and oriented x3, somewhat confused, not in acute distress. Patient is morbidly obese. HEENT: Normocephalic, atraumatic. PERRLA. Extraocular muscles intact. Negative for icterus. Moist oral mucosa. Negative throat erythema. NECK: Soft, supple with no cervical lymphadenopathy. Difficult to assess JVD given her body habitus. CHEST: Clear to auscultation bilaterally. Good air entry. No wheezes, rales, or rhonchi. HEART: S1, S2 within normal limits. Regular rate and rhythm. No murmurs, rubs , or gallops. ABDOMEN: Soft, nondistended with left lower quadrant tenderness and moderate palpation with absence of surgical abdomen. Negative for rebound tenderness. EXTREMITIES: No cyanosis, clubbing with 1+ bilateral lower extremity edema, nonpitting, difficult to further assess given her obesity. PSYCHIATRIC: No active psychosis, depression, suicidal or homicidal ideation. SKIN: Warm to touch. DIAGNOSTIC STUDIES/LAB DATA: Most recent laboratories drawn on 03/07/18, shows a CBC with a WBC of 13.8, H and H of 11.2 and 34, platelets of 280. Sodium of 139, potassium of 2.8, BUN and creatinine were found to be normal. LFTs were either low or normal. Troponin is normal. TSH was found to be normal. Urinalysis, urine wbc is trace 0 to 5, rbc is 3+ with greater than 10 per high-power field rbc's. Squamous epithelial cells are present. Brain CT shows no acute disease, however, it does show age-related atrophy and mild chronic small vessel ischemic disease. EKG shows normal sinus rhythm, 91 beats per minute with no ST Segment changes and abdominal and pelvic CT with contrast shows mild diverticulitis with minimal cholelithiasis and fatty liver disease. ASSESSMENT AND PLAN: The patient is a 73-year-old lady with history of morbid obesity, hypertension and frequent falls, being admitted for weakness likely secondary to diverticulitis. 1. Weakness, possibly due to diverticulitis along with electrolyte abnormalities along with her baseline of what seems to be frequent falls in the past and certainly from her previous admission. At this time, we will replete her magnesium and we will add 40 more mEq to what has been given in the ED and we will ask for PT to evaluate. 2. Diverticulitis. Patient has received 1 dose of Zosyn in the ED before any blood cultures have been drawn. I have ordered blood cultures to be drawn prior to any subsequent antibiotics being given. We will continue with Levaquin and Flagyl at this time and we will continue watchful waiting and follow cultures, which may be of diminished benefit given patient has received antibiotics prior to it being drawn. 3. Hypokalemia/hypomagnesemia/electrolyte abnormalities: Corrected. We will continue to monitor and follow and replete as needed. 4. Constipation. Patient is on antipsychotic such as risperidone as well as lamotrigine likely secondary to patient's bipolar disorder, and on review of CT , she does seem to be constipated as per her history, likely making her more prone to diverticulitis that she currently has. At this time, we will place patient on Senna Plus and MiraLAX daily for the next 2 days and we will continue watchful waiting. 5. Hypertension/question of coronary artery disease. The patient was quite surprised when I mentioned and I asked whether she has a coronary artery disease given that this was not mentioned in her previous H and P, but was mentioned in her discharge summary. She was discharged on aspirin, but currently not on her declared medications and we will place her with at least a baby aspirin at this time until we can clarify her history whether she does or does not have any coronary artery disease. There was some concern that she was congested on her last admission, but unclear what other workup has been done and was not told that she has a coronary artery disease prior to discharge. We will continue with aspirin and beta blockers as discussed. 6. DVT prophylaxis: We will place patient on 40 mEq of Lovenox. 7. Disposition: For a PT eval as above. [id number]/[facility] #: [id number] [facility]US[facility]ad[facility]
[2018-03-07] MEDS: Levofloxacin 750 MG IVPREMIX(* 750 MG/150 ML BAG IVPB SCH (16:35)
[2018-03-07] MEDS: lamoTRIgine TAB(*) 100 MG PO SCH (19:51)
[2018-03-07] MEDS: lamoTRIgine TAB(*) 25 MG PO SCH (19:51)
[2018-03-08] MEDS ORDERED: Acetaminophen TAB* 325 MG PO PRN (01:20)
[2018-03-08] MEDS: metroNIDAZOLE IV 500 MG/100ML* 500 MG/100 ML BAG IVPB SCH ×3 (02:37→17:26)
[2018-03-08 06:51] LABS: ABS Basophils 0 10^3/ul (0-0.2); ABS Eosinophils 0.2 10^3/ul (0-0.6); ABS Lymphocytes 1.5 10^3/ul (1.0-4.8); ABS Monocytes 0.7 10^3/ul (0-0.8); ABS Neutrophils 6.9 10^3/ul (1.5-7.7); ABS Nucleated RBC 0 10^3/ul; Eosinophil % 2.1 % (0-6); Hematocrit 33 % (35-47); Hemoglobin 10.6 g/dl (12.0-16.0); Lymphocyte % 16.4 % (25-47); Mean Corpuscular HGB Conc 32 g/dl (31-36); Mean Corpuscular Hemoglobin 26 pg (27-31); Mean Corpuscular Volume 79 fL (80-97); Mean Platelet Volume 7.3 fL (7.4-10.4); Nucleated Red Blood Cells % 0.1; Platelet Count 269 10^3/ul (150-450); Red Blood Count 4.11 10^6/ul (4.00-5.40); Red Cell Distribution Width 16 % (10.5-15); White Blood Count 9.3 10^3/ul (3.5-10.8)
[2018-03-08 06:55] LABS: EGFR Non-African American 79.6 (>60)
[2018-03-08] MEDS ORDERED: Pneumococcal *Vac Polyvalent 0.5 ML VIAL IM ONE (09:00)
[2018-03-08] MEDS: Senna TAB PO SCH (09:38)
[2018-03-08] MEDS: Aspirin 81 mg CHEW TAB* 81 MG TAB.CHEW PO SCH (09:39)
[2018-03-08] MEDS: Enoxaparin(*) 40 MG/0.4 ML SYR SUBCUT SCH (09:39)
[2018-03-08] MEDS: Carvedilol TAB* 3.125 MG PO SCH ×2 (09:39→21:14)
[2018-03-08] MEDS: Polyethylene Glycol 3350* 17 GM PACKET PO SCH (09:40)
[2018-03-08] MEDS: Docusate CAP* 100 MG PO SCH (09:40)
[2018-03-08] MEDS: Levofloxacin 750 MG IVPREMIX(* 750 MG/150 ML BAG IVPB SCH (14:40)
--- NOTE | 2018-03-08 14:42 | PN ---
Subjective Date of Service: 03/08/18 Interval History: Pt seen and examined. Meds and labs reviewed. CC: Loose bowel movement and HEART, relieved by Tylenol; feels gait is slightly worse today than yesterday ROS: Denied dizziness, F/C, N/V, CP, SOB, increased cough, sputum production, abd pain, constipation, dysuria, myalgias, arthralgias, throat pain, and new skin lesions. The rest of the 14 point ROS are unremarkable. PHYSICAL EXAM: GEN APPEARANCE: Awake, not in acute distress HEENT: NC/AT, PERRLA, moist oral mucosa, (-) throat erythema NECK: Soft, supple, (-) cervical LAD, (-)JVD HEART: S1S2 WNL, RRR, No MRG CHEST: CTA, BL, GAE, No W/R/R ABD: Soft, ND/LLQ tenderness, NABS 4x Q EXT: No C/C/E SKIN: Warm to touch PSYCH: No active psychosis, hallucinations, depression, SI/HI Objective Active Medications: Acetaminophen (Tylenol Tab*) 650 mg PO ONCE PRN PRN Reason: PAIN Stop: 03/09/18 01:19 Aspirin (Aspirin 81 Mg Chew Tab*) 81 mg PO DAILY PENDING SALE TO [facility] Last Admin: 03/08/18 09:39 Dose: 81 mg Carvedilol (Coreg Tab*) 3.125 mg PO BID PENDING SALE TO [facility] Last Admin: 03/08/18 09:39 Dose: 3.125 mg Docusate Sodium (Colace Cap*) 100 mg PO DAILY PENDING SALE TO [facility] Last Admin: 03/08/18 09:40 Dose: 100 mg Enoxaparin Sodium (Lovenox(*)) 40 mg SUBCUT Q24H PENDING SALE TO [facility] Last Admin: 03/08/18 09:39 Dose: 40 mg Metronidazole/Sodium Chloride (Flagyl 500 Mg Ivpb*) 500 mg in 100 mls @ 100 mls /hr IVPB Q8H PENDING SALE TO [facility] Last Admin: 03/08/18 10:00 Dose: 100 mls/hr Levofloxacin/Dextrose (Levaquin 750 Mg Ivpremix(*)) 750 mg in 150 mls @ 100 mls /hr IVPB 1500 PENDING SALE TO [facility] Last Admin: 03/07/18 16:35 Dose: 100 mls/hr Calcium Gluconate 1 gm/ Sodium (Chloride) 60 mls @ 60 mls/hr IVPB ONCE ONE Stop: 03/08/18 15:30 Potassium Phosphate 10 mmole/ (Sodium Chloride) 253.3333 mls @ 42 mls/hr IVPB ONCE ONE Stop: 03/08/18 21:01 Lamotrigine (Lamictal Tab(*)) 200 mg PO BEDTIME PENDING SALE TO [facility] Last Admin: 03/07/18 19:51 Dose: 200 mg Lamotrigine (Lamictal Tab(*)) 25 mg PO BEDTIME PENDING SALE TO [facility] Last Admin: 03/07/18 19:51 Dose: 25 mg Ondansetron HCl (Zofran Inj*) 4 mg IV Q6H PRN PRN Reason: NAUSEA Risperidone (Risperdal) 0.5 mg PO BEDTIME PENDING SALE TO [facility] Last Admin: 03/07/18 19:51 Dose: 0.5 mg Senna (Senokot Tab*) 2 tab PO DAILY PENDING SALE TO [facility] Last Admin: 03/08/18 09:38 Dose: 2 tab Vital Signs - 8 hr 03/08/18 03/08/18 07:35 08:00 Temperature 97.8 F Pulse Rate 78 Respiratory 20 20 Rate Blood Pressure 152/78 (mmHg) O2 Sat by Pulse 100 Oximetry Oxygen Devices in Use Now: None Result Diagrams: 03/08/18 06:09 03/08/18 06:09 Microbiology and Other Data: Microbiology 03/07/18 03:17 Urine Culture - Final Urine 03/07/18 08:29 Aerobic Blood Culture - Preliminary Blood Venous No Growth Day 1 Anaerobic Blood Culture - Preliminary No Growth Day 1 03/07/18 08:29 Aerobic Blood Culture - Preliminary Blood Venous No Growth Day 1 Anaerobic Blood Culture - Preliminary No Growth Day 1 Assess/Plan/Problems-Billing Assessment: - Patient Problems (1) Weakness Current Visit: Yes Status: Acute Code(s): R53.1 - WEAKNESS SNOMED Code(s) : 42564996 Comment: -Will continue to have PT evaluate given some initial reluctance as to whether pt would want to use a walker at home or not -Now claims some gait instability slightly worse than yesterday -Possibly due to electrolyte abnormalities due to diverticulotitis -Replete phosphate and calcium levels w/c are only mildly low; potassium and magnesium levels WNL today -Will continue watchful waiting (2) Diverticulitis Current Visit: No Status: Acute Code(s): K57.92 - DVTRCLI OF INTEST, PART UNSP, W/O PERF OR ABSCESS W/O BLEED SNOMED Code(s): 975668045 Comment: -Leukocytosis resolved -Continue Levaquin and Flagyl -Pt tolerates diet -Blood cultures (-) x 1 day (3) Electrolyte abnormality Current Visit: Yes Status: Acute Code(s): E87.8 - OTH DISORDERS OF ELECTROLYTE AND FLUID BALANCE, NEC SNOMED Code(s): 206600030 Comment: -Corrected as discussed -Will continue watchful waiting (4) Constipation Current Visit: Yes Status: Acute Code(s): K59.00 - CONSTIPATION, UNSPECIFIED SNOMED Code(s): 67209691 Comment: -Resolved -D/Cd Miralax -Continue Senna-Plus---may D/C Senna and may continue on Colace if continues to complain of loos bowel movement given she mentions she has not moved her bowels for at least a week on admission (5) HTN (hypertension) Current Visit: No Status: Acute Code(s): I10 - ESSENTIAL (PRIMARY) HYPERTENSION SNOMED Code(s): 49150551 Comment: -Continue Carvedilol (6) DVT prophylaxis Current Visit: No Status: Acute Code(s): TEL7120 - SNOMED Code(s): 951229211 Comment: -Continue Lovenox Status and Disposition: -Continue PT -F/U on cultures -For possible D/C in 1-2 days
[2018-03-08] MEDS ORDERED: Calcium Gluconate INJ* 1 GM in NS 0.9% 50 ML* 50 ML IVPB ONE (15:00)
[2018-03-08] MEDS ORDERED: Potassium Phosphate IV* 10 MMOLE in NS 0.9% 250 ML* 250 ML IVPB ONE (15:00)
[2018-03-08] MEDS: lamoTRIgine TAB(*) 100 MG PO SCH (21:14)
[2018-03-08] MEDS: lamoTRIgine TAB(*) 25 MG PO SCH (21:14)
[2018-03-09] MEDS: metroNIDAZOLE IV 500 MG/100ML* 500 MG/100 ML BAG IVPB SCH ×2 (00:45→11:17)
[2018-03-09 06:17] LABS: ABS Basophils 0 10^3/ul (0-0.2); ABS Eosinophils 0.3 10^3/ul (0-0.6); ABS Lymphocytes 1.4 10^3/ul (1.0-4.8); ABS Monocytes 0.5 10^3/ul (0-0.8); ABS Neutrophils 6.4 10^3/ul (1.5-7.7); ABS Nucleated RBC 0 10^3/ul; Eosinophil % 3.1 % (0-6); Hematocrit 34 % (35-47); Lymphocyte % 16.6 % (25-47); Mean Corpuscular HGB Conc 33 g/dl (31-36); Mean Corpuscular Hemoglobin 26 pg (27-31); Mean Corpuscular Volume 78 fL (80-97); Mean Platelet Volume 7.5 fL (7.4-10.4); Nucleated Red Blood Cells % 0; Platelet Count 297 10^3/ul (150-450); Red Blood Count 4.29 10^6/ul (4.00-5.40); Red Cell Distribution Width 16 % (10.5-15); White Blood Count 8.7 10^3/ul (3.5-10.8)
[2018-03-09 06:35] LABS: EGFR Non-African American 80.9 (>60)
[2018-03-09] MEDS ORDERED: Magnesium Sulfate 2 GM IV* 2 GM/50 ML BAG IVPB ONE (07:23)
[2018-03-09] MEDS: Carvedilol TAB* 3.125 MG PO SCH ×2 (08:23→20:26)
[2018-03-09] MEDS: Docusate CAP* 100 MG PO SCH (08:24)
[2018-03-09] MEDS: Aspirin 81 mg CHEW TAB* 81 MG TAB.CHEW PO SCH (08:24)
[2018-03-09] MEDS: Senna TAB PO SCH (08:24)
[2018-03-09] MEDS: Enoxaparin(*) 40 MG/0.4 ML SYR SUBCUT SCH (08:25)
--- NOTE | 2018-03-09 10:28 | PN ---
Subjective Date of Service: 03/09/18 Interval History: HOSPITALIST PROGRESS NOTE Patient seen and examined at bedside. Care reviewed and d/w Farhat Wang RN. She feels a little better today. Abdominal pain is improved, tolerating diet, multiple BMs yesterday. Still feels weak and unsteady. Family History: Unchanged from Admission Social History: Unchanged from Admission Past Medical History: Unchanged from Admission Objective Active Medications: Aspirin (Aspirin 81 Mg Chew Tab*) 81 mg PO DAILY [facility] Last Admin: 03/09/18 08:24 Dose: 81 mg Carvedilol (Coreg Tab*) 3.125 mg PO BID [facility] Last Admin: 03/09/18 08:23 Dose: 3.125 mg Docusate Sodium (Colace Cap*) 100 mg PO DAILY [facility] Last Admin: 03/09/18 08:24 Dose: 100 mg Enoxaparin Sodium (Lovenox(*)) 40 mg SUBCUT Q24H [facility] Last Admin: 03/09/18 08:25 Dose: 40 mg Metronidazole/Sodium Chloride (Flagyl 500 Mg Ivpb*) 500 mg in 100 mls @ 100 mls /hr IVPB Q8H [facility] Last Admin: 03/09/18 00:45 Dose: 100 mls/hr Levofloxacin/Dextrose (Levaquin 750 Mg Ivpremix(*)) 750 mg in 150 mls @ 100 mls /hr IVPB 1500 [facility] Last Admin: 03/08/18 14:40 Dose: 100 mls/hr Lamotrigine (Lamictal Tab(*)) 200 mg PO BEDTIME [facility] Last Admin: 03/08/18 21:14 Dose: 200 mg Lamotrigine (Lamictal Tab(*)) 25 mg PO BEDTIME [facility] Last Admin: 03/08/18 21:14 Dose: 25 mg Ondansetron HCl (Zofran Inj*) 4 mg IV Q6H PRN PRN Reason: NAUSEA Risperidone (Risperdal) 0.5 mg PO BEDTIME [facility] Last Admin: 03/08/18 21:14 Dose: 0.5 mg Senna (Senokot Tab*) 2 tab PO DAILY [facility] Last Admin: 03/09/18 08:24 Dose: 2 tab Vital Signs - 8 hr 03/09/18 03/09/18 03:20 08:01 Temperature 98.7 F 97.3 F Pulse Rate 82 81 Respiratory 20 16 Rate Blood Pressure 146/68 152/75 (mmHg) O2 Sat by Pulse 97 99 Oximetry Oxygen Devices in Use Now: None Appearance: Pleasant elderly lady sitting up in bed in NAD. Eyes: No Scleral Icterus Ears/Nose/Mouth/Throat: Mucous Membranes Moist Neck: Trachea Midline Respiratory: Symmetrical Chest Expansion and Respiratory Effort, Clear to Auscultation Cardiovascular: RRR - Normal S1 and S2 Abdominal: - - Obese, soft, mild LLQ tenderness, NG, NR, BS+ Neurological: Alert and Oriented x 3, NL Muscle Strength and Tone Result Diagrams: 03/09/18 05:48 03/09/18 05:48 Assess/Plan/Problems-Billing Assessment: Mrs Fuentes is a 73yo F with PMH of HTN, bipolar disorder, morbid obesity with BMI 40, who presented to ED after falls at home, c/o weakness, found to have diverticulitis. - Patient Problems (1) Diverticulitis Comment: - Improving. - Leukocytosis is resolved, abdominal pain is less intense, tolerating diet well , BM+. - Continue Levaquin and Flagyl #3. (2) Hypomagnesemia Comment: - Replete. (3) Physical deconditioning Comment: - No focal deficits. - PT input appreciated. - Will request OT evaluation. - Patient is agreeable with [facility]. (4) HTN (hypertension) Comment: - Controlled. - Continue Carvedilol. (5) DVT prophylaxis Comment: - Continue Lovenox. (6) Full code status Status and Disposition: Inpatient. CM to assist with [facility].
[2018-03-09] MEDS ORDERED: Senna TAB PO PRN (10:35)
[2018-03-09] MEDS: metroNIDAZOLE TAB* 250 MG PO SCH ×2 (11:53→18:32)
[2018-03-09] MEDS: Levofloxacin TAB* 250 MG PO SCH (15:18)
[2018-03-09] MEDS: lamoTRIgine TAB(*) 100 MG PO SCH (20:26)
[2018-03-09] MEDS: lamoTRIgine TAB(*) 25 MG PO SCH (20:27)
[2018-03-10] MEDS: metroNIDAZOLE TAB* 250 MG PO SCH ×3 (02:18→19:05)
[2018-03-10] MEDS: Docusate CAP* 100 MG PO SCH (09:43)
[2018-03-10] MEDS: Carvedilol TAB* 3.125 MG PO SCH ×2 (09:44→20:58)
[2018-03-10] MEDS: Aspirin 81 mg CHEW TAB* 81 MG TAB.CHEW PO SCH (09:44)
[2018-03-10] MEDS: Enoxaparin(*) 40 MG/0.4 ML SYR SUBCUT SCH (09:46)
--- NOTE | 2018-03-10 11:01 | PN ---
Subjective Date of Service: 03/10/18 Interval History: HOSPITALIST PROGRESS NOTE Patient seen and examined at bedside. Farhat Wang RN. She feels well today, offers no new complaints. Family History: Unchanged from Admission Social History: Unchanged from Admission Past Medical History: Unchanged from Admission Objective Active Medications: Aspirin (Aspirin 81 Mg Chew Tab*) 81 mg PO DAILY [facility] Last Admin: 03/10/18 09:44 Dose: 81 mg Carvedilol (Coreg Tab*) 3.125 mg PO BID [facility] Last Admin: 03/10/18 09:44 Dose: 3.125 mg Docusate Sodium (Colace Cap*) 100 mg PO DAILY [facility] Last Admin: 03/10/18 09:43 Dose: 100 mg Enoxaparin Sodium (Lovenox(*)) 40 mg SUBCUT Q24H [facility] Last Admin: 03/10/18 09:46 Dose: 40 mg Lamotrigine (Lamictal Tab(*)) 200 mg PO BEDTIME [facility] Last Admin: 03/09/18 20:26 Dose: 200 mg Lamotrigine (Lamictal Tab(*)) 25 mg PO BEDTIME [facility] Last Admin: 03/09/18 20:27 Dose: 25 mg Levofloxacin (Levaquin Tab*) 750 mg PO 1500 [facility] Last Admin: 03/09/18 15:18 Dose: 750 mg Metronidazole (Flagyl Tab*) 500 mg PO Q8H [facility] Last Admin: 03/10/18 09:45 Dose: 500 mg Ondansetron HCl (Zofran Inj*) 4 mg IV Q6H PRN PRN Reason: NAUSEA Risperidone (Risperdal) 0.5 mg PO BEDTIME [facility] Last Admin: 03/09/18 20:27 Dose: 0.5 mg Senna (Senokot Tab*) 2 tab PO DAILY PRN PRN Reason: CONSTIPATION Vital Signs - 8 hr 03/10/18 03/10/18 03:47 07:24 Temperature 98.1 F 98.2 F Pulse Rate 91 87 Respiratory 20 28 Rate Blood Pressure 143/76 168/81 (mmHg) O2 Sat by Pulse 96 95 Oximetry Oxygen Devices in Use Now: None Appearance: Pleasant elderly lady sitting up in chair in NAD. Eyes: No Scleral Icterus Ears/Nose/Mouth/Throat: Mucous Membranes Moist Neck: Trachea Midline Respiratory: Symmetrical Chest Expansion and Respiratory Effort, Clear to Auscultation Cardiovascular: RRR - Normal S1 and S2 Neurological: Alert and Oriented x 3, NL Muscle Strength and Tone Result Diagrams: 03/09/18 05:48 03/09/18 05:48 Assess/Plan/Problems-Billing Assessment: Mrs Fuentes is a 73yo F with PMH of HTN, bipolar disorder, morbid obesity with BMI 40, who presented to ED after falls at home, c/o weakness, found to have diverticulitis. - Patient Problems (1) Diverticulitis Comment: - Improving. - Leukocytosis is resolved, abdominal pain is less intense, tolerating diet well , BM+. - Continue Levaquin and Flagyl #4. (2) Hypomagnesemia Comment: - Repleted. (3) Physical deconditioning Comment: - No focal deficits. - PT input appreciated. - Will request OT evaluation. - Patient is agreeable with [facility] - awaiting bed offer. (4) HTN (hypertension) Comment: - Controlled. - Continue Carvedilol. (5) DVT prophylaxis Comment: - Continue Lovenox. (6) Full code status Status and Disposition: Inpatient. CM to assist with [facility].
[2018-03-10] MEDS: Levofloxacin TAB* 250 MG PO SCH (14:53)
[2018-03-10] MEDS: lamoTRIgine TAB(*) 100 MG PO SCH (20:58)
[2018-03-10] MEDS: lamoTRIgine TAB(*) 25 MG PO SCH (20:58)
[2018-03-11] MEDS: metroNIDAZOLE TAB* 250 MG PO SCH ×3 (02:08→19:32)
[2018-03-11] MEDS: Docusate CAP* 100 MG PO SCH (08:12)
[2018-03-11] MEDS: Aspirin 81 mg CHEW TAB* 81 MG TAB.CHEW PO SCH (08:12)
[2018-03-11] MEDS: Enoxaparin(*) 40 MG/0.4 ML SYR SUBCUT SCH (08:12)
[2018-03-11] MEDS: Carvedilol TAB* 3.125 MG PO SCH ×2 (08:13→21:21)
--- NOTE | 2018-03-11 11:37 | PN ---
Subjective Date of Service: 03/11/18 Interval History: HOSPITALIST PROGRESS NOTE Patient seen and examined at bedside. Care reviewed and d/w Gage Malone RN. She offers no new complaints today. Family History: Unchanged from Admission Social History: Unchanged from Admission Past Medical History: Unchanged from Admission Objective Active Medications: Aspirin (Aspirin 81 Mg Chew Tab*) 81 mg PO DAILY [facility] Last Admin: 03/11/18 08:12 Dose: 81 mg Carvedilol (Coreg Tab*) 3.125 mg PO BID [facility] Last Admin: 03/11/18 08:13 Dose: 3.125 mg Docusate Sodium (Colace Cap*) 100 mg PO DAILY [facility] Last Admin: 03/11/18 08:12 Dose: 100 mg Enoxaparin Sodium (Lovenox(*)) 40 mg SUBCUT Q24H [facility] Last Admin: 03/11/18 08:12 Dose: 40 mg Lamotrigine (Lamictal Tab(*)) 200 mg PO BEDTIME [facility] Last Admin: 03/10/18 20:58 Dose: 200 mg Lamotrigine (Lamictal Tab(*)) 25 mg PO BEDTIME [facility] Last Admin: 03/10/18 20:58 Dose: 25 mg Levofloxacin (Levaquin Tab*) 750 mg PO 1500 [facility] Last Admin: 03/10/18 14:53 Dose: 750 mg Metronidazole (Flagyl Tab*) 500 mg PO Q8H [facility] Last Admin: 03/11/18 10:11 Dose: 500 mg Ondansetron HCl (Zofran Inj*) 4 mg IV Q6H PRN PRN Reason: NAUSEA Risperidone (Risperdal) 0.5 mg PO BEDTIME [facility] Last Admin: 03/10/18 20:58 Dose: 0.5 mg Senna (Senokot Tab*) 2 tab PO DAILY PRN PRN Reason: CONSTIPATION Vital Signs - 8 hr 03/11/18 03/11/18 08:00 08:17 Pulse Rate 92 Respiratory 16 Rate Blood Pressure 160/96 (mmHg) Oxygen Devices in Use Now: None Appearance: Elderly lady sitting up in bed in NAD. Eyes: No Scleral Icterus Ears/Nose/Mouth/Throat: Mucous Membranes Moist Neck: Trachea Midline Respiratory: Symmetrical Chest Expansion and Respiratory Effort, Clear to Auscultation Cardiovascular: NL Sounds; No Murmurs; No JVD, RRR Neurological: Alert and Oriented x 3, NL Muscle Strength and Tone Result Diagrams: 03/09/18 05:48 03/09/18 05:48 Assess/Plan/Problems-Billing Assessment: Mrs Fuentes is a 73yo F with PMH of HTN, bipolar disorder, morbid obesity with BMI 40, who presented to ED after falls at home, c/o weakness, found to have diverticulitis. - Patient Problems (1) Diverticulitis Comment: - Improving. - Leukocytosis is resolved, abdominal pain is less intense, tolerating diet well , BM+. - Continue Levaquin and Flagyl #5. (2) Hypomagnesemia Comment: - Repleted. (3) Physical deconditioning Comment: - No focal deficits. - PT input appreciated. - Will request OT evaluation. - Patient is agreeable with [facility] - anticipate d/c in AM to [facility]. (4) HTN (hypertension) Comment: - Controlled. - Continue Carvedilol. (5) DVT prophylaxis Comment: - Continue Lovenox. (6) Full code status Status and Disposition: Inpatient. Anticipate d/c in AM to [facility].
[2018-03-11] MEDS: Levofloxacin TAB* 250 MG PO SCH (14:38)
[2018-03-11] MEDS: lamoTRIgine TAB(*) 25 MG PO SCH (21:21)
[2018-03-11] MEDS: lamoTRIgine TAB(*) 100 MG PO SCH (21:21)
[2018-03-12] MEDS: metroNIDAZOLE TAB* 250 MG PO SCH (02:04)
[2018-03-12 07:24] VITALS: BP 118/58
[2018-03-12] MEDS: Enoxaparin(*) 40 MG/0.4 ML SYR SUBCUT SCH (07:24)
[2018-03-12] MEDS: Aspirin 81 mg CHEW TAB* 81 MG TAB.CHEW PO SCH (07:24)
[2018-03-12] MEDS: Carvedilol TAB* 3.125 MG PO SCH (07:24)
[2018-03-12] MEDS: Docusate CAP* 100 MG PO SCH (07:24)
--- NOTE | 2018-03-12 09:55 | DS ---
CC: Dr. Conde; [facility]* DISCHARGE SUMMARY: DATE OF ADMISSION: 03/07/18 DATE OF DISCHARGE: 03/12/18 PRIMARY CARE PROVIDER: Dr. Conde. DISCHARGE DIAGNOSES: 1. Diverticulitis. 2. Hypomagnesemia. 3. Physical deconditioning requiring subacute rehab. SECONDARY DIAGNOSES: 1. Hypertension. 2. Bipolar disorder. 3. Morbid obesity with a BMI of 40. MEDICATION: 1. Aspirin 81 mg p.o. daily. 2. Carvedilol 3.125 mg p.o. b.i.d. 3. Probiotic 1 capsule p.o. daily. 4. Lamotrigine 225 mg at bedtime. 5. Risperdal 0.5 mg p.o. at bedtime. 6. Amoxicillin plus clavulanate 875 mg p.o. b.i.d. for 6 more days. HOSPITAL COURSE: Ms. Fuentes is a 73-year-old female with a past medical history as stated above who presented to the emergency room with complaints of weakness. Please note that at the end of October, the patient was admitted with similar complaints of weakness, had fallen twice, and was found to have rhabdomyolysis. At this time, she had a similar presentation in the sense that she was "stuck" in her recliner and was unable to get up, so an ambulance was called. In the emergency room, she was noted to have left lower quadrant tenderness and a CT was performed and showed diverticulitis. For more details about her presentation, I refer you to her history and physical. The initial impression was that her weakness was secondary to diverticulitis associated with electrolyte abnormalities, including hypokalemia and hypomagnesemia, but even after her symptoms had improved, the patient was still felt to be deconditioned. After PT and OT evaluation, it was felt that she would benefit of subacute rehab. Of note is that on her prior admission in October, the patient was noted to have mild troponin elevation up to 0.1 in the setting of rhabdomyolysis. She does have risk factors for coronary artery disease, but she will need further workup as an outpatient. On the prior admission, she had an echocardiogram that showed the ejection fraction 60 to 65% with no reports of wall motion abnormalities. Her troponin elevation may have been secondary to her rhabdomyolysis, but considering her risk factors, she will need to discuss further with her primary care provider if she will want to pursue a stress test in the outpatient setting. At this point, the patient is on a baby aspirin and beta mingo. PHYSICAL EXAMINATION: Vital Signs: Temperature 97.7, heart rate is 87, respiratory rate is 14, oxygen saturation 98% on room air, blood pressure 145/ 52. General: The patient is a pleasant elderly lady, sitting up in bed in no acute distress. CVS: Normal S1, S2. Regular rate and rhythm. Chest: Breath sounds present bilaterally with no added sounds. Abdomen: Obese with minimal left lower quadrant tenderness. No guarding or rebound. Bowel sounds are present. Neurologic: She is alert, awake, and oriented x3, able to move all 4 extremities. DIET: Low fiber diet for 2 weeks. ACTIVITIES: As tolerated. DISPOSITION: To [facility]. STATUS WHILE IN THE HOSPITAL: Inpatient. Please keep in mind this is a summarized version of this patient's hospital stay. If you need more information, please feel free to call me at [phone] or please obtain full medical records. TIME SPENT: Approximately 45 minutes were spent to complete this discharge. [id number]/CPS #: [id number] ANGELIQUE
== END 2018-03-12 10:10 | DRG 392 ==
LOC: ED 01:35 → MEDTELE 08:00
PROVIDERS: ADMIT Student in an Organized Health Care Education/Training Program; ATTEND Internal Medicine
DX: K57.32 Diverticulitis of large intestine without perforation or abscess without bleeding (principal); Z68.41 Body mass index [BMI] 40.0-44.9, adult; E66.01 Morbid (severe) obesity due to excess calories; I10 Essential (primary) hypertension; R29.6 Repeated falls; K80.20 Calculus of gallbladder without cholecystitis without obstruction; K76.0 Fatty (change of) liver, not elsewhere classified; F31.9 Bipolar disorder, unspecified; I25.10 Atherosclerotic heart disease of native coronary artery without angina pectoris; K59.00 Constipation, unspecified; E87.6 Hypokalemia; E83.42 Hypomagnesemia; N20.0 Calculus of kidney; D64.9 Anemia, unspecified; Z88.8 Allergy status to other drugs, medicaments and biological substances; Z91.040 Latex allergy status; Z91.018 Allergy to other foods; Z80.6 Family history of leukemia; Z82.0 Family history of epilepsy and other diseases of the nervous system; Z80.49 Family history of malignant neoplasm of other genital organs; Z83.3 Family history of diabetes mellitus; Z82.49 Family history of ischemic heart disease and other diseases of the circulatory system; Z87.891 Personal history of nicotine dependence; Z23 Encounter for immunization; Z79.82 Long term (current) use of aspirin
CPT/HCPCS: 36415; 70450; 74177; 80053; 81003; 81015; 82550; 83605; 83735; 84100; 84443; 84484; 85025; 87040; 87086; 90732; 93005; 99284; A9270-GY; G8978-GP-CK; G8979-GP-CI; G8987-GO-CL; G8988-GO-CJ; J0610; J1650; J2543; J3475; J3490; Q9967

== ENCOUNTER 2022-10-30 12:18 | Inpatient (IN) ==
[2022-10-30 19:00] LABS: Hematocrit 32.9 % (35-45); Hemoglobin 10.2 g/dL (11.5-14.3); Mean Corpuscular Hemoglobin 22.1 pg (27-33); Mean Corpuscular Hgb Conc 31.1 g/dL (31-36); Mean Corpuscular Volume 71.3 fL (80-97); Mean Platelet Volume 6.6 fL (7.5-11.2); Platelet Count 472 10^3/uL (150-450); Red Blood Count 4.62 10^6/uL (3.63-4.92); Red Cell Distribution Width 24.1 % (12-17); White Blood Count 17.1 10^3/uL (3.8-11.8)
[2022-10-30 19:28] LABS: Blood Urea Nitrogen 23 mg/dL (6-24); CO2 Carbon Dioxide 23 mmol/L (22-32); Calcium 9.1 mg/dL (8.6-10.3); Chloride 99 mmol/L (101-111); Creatinine, Serum 1.05 mg/dL (0.51-0.95); Glucose 134 mg/dL (70-100); Sodium 134 mmol/L (135-145); eGFR CKD-EPI 55.1 (>60)
[2022-10-30 19:33] LABS: Anion Gap 12 mmol/L (2-16)
[2022-10-30] MEDS ORDERED: metroNIDAZOLE IV 500 MG/100ML 500 MG/100 ML BAG IVPB ONE (21:14)
[2022-10-30] MEDS ORDERED: Cefepime 2 GM in Dextrose 2 GM/50 ML BAG IV ONE (21:14)
[2022-10-30] MEDS ORDERED: HYDROcodone/ACETAMIN 5/325 mg TAB PO ONE (21:52)
[2022-10-30] MEDS ORDERED: Vancomycin 1,500 MG in NS 0.9% 250 ml 250 ML IVPB ONE (22:00)
[2022-10-30 22:46] LABS: C Reactive Protein 80.09 mg/L (<8.01)
[2022-10-31] MEDS ORDERED: Vancomycin per Pharmacy 1 EA NOTE FOLLOW UP SCH (01:00)
[2022-10-31] MEDS: Enoxaparin 40 MG/0.4 ML SYR SUBCUT SCH ×2 (01:23→20:48)
[2022-10-31] MEDS: metroNIDAZOLE IV 500 MG/100ML 500 MG/100 ML BAG IVPB SCH ×4 (06:18→23:33)
[2022-10-31 06:48] LABS: Calcium 8.2 mg/dL (8.6-10.3); Creatinine, Serum 1.04 mg/dL (0.51-0.95); Magnesium 1.8 mg/dL (1.9-2.7); Potassium 4.5 mmol/L (3.5-5.0); eGFR CKD-EPI 55.7 (>60)
[2022-10-31] MEDS ORDERED: cefTRIAXone 1 gm/50 mL D5W 1 GM/50 ML BAG IV SCH (07:00)
[2022-10-31 07:34] LABS: ABS Eosinophils 0.1 10^3/uL (0.0-0.5); ABS Lymphocytes 1.1 10^3/uL (1.0-4.8); ABS Monocytes 1.1 10^3/uL (0.0-0.9); ABS Neutrophils 20.5 10^3/uL (1.5-7.6); Eosinophil % 0.3 %; Hematocrit 28.5 % (35-45); Lymphocyte % 4.9 %; Mean Corpuscular Hemoglobin 22.2 pg (27-33); Mean Corpuscular Hgb Conc 31.6 g/dL (31-36); Mean Corpuscular Volume 70.4 fL (80-97); Mean Platelet Volume 7.4 fL (7.5-11.2); Platelet Count 429 10^3/uL (150-450); Red Blood Count 4.04 10^6/uL (3.63-4.92); Red Cell Distribution Width 23.9 % (12-17); White Blood Count 22.8 10^3/uL (3.8-11.8)
[2022-10-31] MEDS: cefTRIAXone 1 gm/50 mL D5W 1 GM/50 ML BAG IV SCH (07:37)
[2022-10-31 08:07] LABS: % Iron Saturation 8 % (15-55); .Transferrin 183 mg/dL (203-362); Iron < 20 ug/dL (50-212); Total Iron Binding Capacity 256 mcg/dL (250-450); Unsaturated Iron Binding 236 ug/dL
[2022-10-31] MEDS ORDERED: NS 0.9% 500 ml BAG 500 ML IV ONE ×2 (08:08→08:09)
[2022-10-31 08:26] LABS: Ferritin 82.3 ng/mL (11-307)
[2022-10-31] MEDS ORDERED: Vancomycin 1,000 MG in NS 0.9% 250 ml 250 ML IVPB ONE (10:00)
[2022-10-31] MEDS ORDERED: HYDROmorphone 1 MG/1 ML SYRINGE IV ONE (11:16)
[2022-10-31] MEDS ORDERED: HYDROcodone/ACETAMIN 5/325 mg TAB PO ONE (11:17)
[2022-10-31] MEDS: Vancomycin 1,500 MG in NS 0.9% 250 ml 250 ML IVPB SCH (20:47)
[2022-10-31 21:26] LABS: Calcium 8.3 mg/dL (8.6-10.3); Creatinine, Serum 0.92 mg/dL (0.51-0.95); Potassium 4.1 mmol/L (3.5-5.0); eGFR CKD-EPI 64.5 (>60)
[2022-10-31] MEDS ORDERED: Senna TAB 8.6 mg TAB PO PRN (21:28)
[2022-10-31] MEDS ORDERED: Polyethylene Glycol 3350 17 GM PACKET PO PRN (21:28)
[2022-11-01] MEDS: metroNIDAZOLE IV 500 MG/100ML 500 MG/100 ML BAG IVPB SCH ×2 (06:08→13:31)
[2022-11-01 06:57] LABS: Urine Osmo 337 mOsm/kg (150-1150)
[2022-11-01] MEDS: cefTRIAXone 1 gm/50 mL D5W 1 GM/50 ML BAG IV SCH (08:04)
[2022-11-01 08:45] LABS: Osmolality Serum 292 mOsm/kg (275-295)
[2022-11-01 09:19] LABS: ABS Eosinophils 0.3 10^3/uL (0.0-0.5); ABS Lymphocytes 1.2 10^3/uL (1.0-4.8); ABS Monocytes 0.6 10^3/uL (0.0-0.9); ABS Neutrophils 7.2 10^3/uL (1.5-7.6); ABS Nucleated RBC 0.01 10^3/ul; Eosinophil % 3.6 %; Hemoglobin 9.2 g/dL (11.5-14.3); Lymphocyte % 12.8 %; Mean Corpuscular Hemoglobin 22.6 pg (27-33); Mean Corpuscular Hgb Conc 31.7 g/dL (31-36); Mean Corpuscular Volume 71.4 fL (80-97); Mean Platelet Volume 6.8 fL (7.5-11.2); Nucleated Red Blood Cells % 0.1 /100 WBC (0.0-0.4); Platelet Count 395 10^3/uL (150-450); Red Blood Count 4.06 10^6/uL (3.63-4.92); Red Cell Distribution Width 24.3 % (12-17); White Blood Count 9.5 10^3/uL (3.8-11.8)
[2022-11-01 13:43] LABS: Calcium 8.4 mg/dL (8.6-10.3); Creatinine, Serum 0.81 mg/dL (0.51-0.95); Potassium 4.5 mmol/L (3.5-5.0); eGFR CKD-EPI 75.2 (>60)
[2022-11-01] MEDS: Vancomycin 1,500 MG in NS 0.9% 250 ml 250 ML IVPB SCH (21:03)
[2022-11-01] MEDS: Enoxaparin 40 MG/0.4 ML SYR SUBCUT SCH (21:05)
[2022-11-02] MEDS: metroNIDAZOLE IV 500 MG/100ML 500 MG/100 ML BAG IVPB SCH ×2 (00:03→05:20)
[2022-11-02] MEDS: cefTRIAXone 1 gm/50 mL D5W 1 GM/50 ML BAG IV SCH (08:06)
[2022-11-02] MEDS: Vancomycin 1,500 MG in NS 0.9% 250 ml 250 ML IVPB SCH (20:12)
[2022-11-02] MEDS: Enoxaparin 40 MG/0.4 ML SYR SUBCUT SCH (20:12)
[2022-11-03] MEDS ORDERED: Lidocaine 2% JELLY 6 ML Topical TOPICAL ONE (08:39)
[2022-11-03] MEDS ORDERED: Vancomycin Trough Check NOTE FOLLOW UP ONE (20:30)
[2022-11-03] MEDS: Enoxaparin 40 MG/0.4 ML SYR SUBCUT SCH (21:39)
[2022-11-04] MEDS: Enoxaparin 40 MG/0.4 ML SYR SUBCUT SCH (21:25)
[2022-11-05] MEDS ORDERED: KCL 10 MEQ/50 ML IVPREMIX 10 MEQ/50 ML BAG IV SCH (07:00)
[2022-11-05 13:58] VITALS: BP 121/76
== END 2022-11-05 16:18 | disposition home or self-care (01) | DRG 571 ==
LOC: EDHOLD 12:18 → ED 12:18 → SUATTDRO 22:24 → MED 10-31 01:08 → SUATTDRO 11-01 14:39
PROVIDERS: ADMIT Student in an Organized Health Care Education/Training Program; ATTEND Hospitalist